=== PATIENT | female | born 1970 | race Caucasian/White ===

== ENCOUNTER 2020-05-31 13:21 | Outpatient (REF) | payer MEDICARE, MEDICAID, SELFPAY | END 2020-05-31 13:22 | disposition home or self-care (01) | LOC: HO.HMGCLDS 13:21 | PROVIDERS: Visit Provider Internal Medicine | DX: Z20.828 Contact with and (suspected) exposure to other viral communicable diseases (principal) | CPT/HCPCS: C9803; U0003 ==

== ENCOUNTER 2022-05-17 02:53 | Emergency (ER) | payer MEDICARE, MEDICAID, SELFPAY ==
--- NOTE | ~2022-05-17 | XR_ITS ---
EXAMINATION: XR HAND, RIGHT CLINICAL INFORMATION: R/O foreign body (glass) to top of R hand COMPARISON: None TECHNIQUE: PA, lateral, and oblique views of the right hand. FINDINGS: No radiodense foreign bodies are identified. No subcutaneous gas. No fracture. Alignment is anatomic. Mild osteoarthritis in the DIP joints, thumb IP joint, and thumb MCP joint. No erosions. XR/XR hand RT 2V IMPRESSION: No radiodense foreign bodies or subcutaneous gas. No acute osseous findings.
[2022-05-17 03:26] VITALS: BP 111/73; PULSE 81; RESP 16; TEMP 36.2; O2SAT 96; BMI 25.8
--- NOTE | 2022-05-17 04:02 | ED.EXTPRO ---
HPI - Extremity Problem General Chief complaint: Extremity Injury, Upper Stated complaint: cut on glass, diabetic, feels sharp pain Time Seen by Provider: 05/17/22 03:45 Source: patient Mode of arrival: ambulatory Limitations: no limitations History of Present Illness HPI Narrative: Patient comes to the emergency room complaining of a laceration to her right knuckle, 3rd digit. It happened couple of days ago. Patient states that she was in a convenience store, there was some broken glass. Patient concerned that there may be glass in it. Patient states that the wound is starting to get erythematous. No pus drainage, no fever chills. Related Data Previous Rx's Medication Instructions Recorded cephalexin 500 mg capsule 500 mg PO BID #13 caps 05/17/22 doxycycline hyclate 100 mg tablet 100 mg PO BID #13 tabs 05/17/22 Allergies Allergy/AdvReac Type Severity Reaction Status Date / Time heparin [HEPARIN] Allergy Unknown UNKNOWN Unverified 03/14/20 14:51 nadolol [NADOLOL] Allergy Unknown SOB/ASTHMA Unverified 03/14/20 14:51 ATTACK Review of Systems Review of Systems: Constitutional : No Weight loss, No Fever, No Chills, No Night Sweats, No Fatigue, No Malaise ENT/Mouth : No Hearing loss, No Ear Pain, No Nasal Congestion, No Sinus Pain, No Hoarseness, No sore throat, No Rhinorrhea, No Swallowing Difficulty Eyes: No Eye Pain, No Swelling, No Redness, No Foreign Body, No Discharge, No Vision Changes Cardiovascular : No Chest Pain, No SOB, No Dyspnea on Exertion, No Orthopnea, No Edema, No Palpitations Respiratory : No Cough, No Sputum, No Wheezing, No Smoke Exposure, No Dyspnea Gastrointestinal : No Nausea, No Vomiting, No Diarrhea, No Constipation, No abdominal Pain, No Hematochezia, No Melena Genitourinary : no irregular bleeding, No Dysuria, No Urinary Frequency, No Hematuria, No Urinary Incontinence, No Urgency, No Flank Pain, No Urinary Flow Changes, No Hesitancy Musculoskeletal : No joint pain, No Myalgias, No Joint Swelling Skin : Abrasion to the dorsum of the hand 3rd PIP, erythema Neuro : No Weakness, No Numbness, No Paresthesias, No Loss of Consciousness, No Dizziness, No Headache Psych : No Anxiety/Panic, No Depression, No SI/HI/AH/VH, No Social Issues, Heme/Lymph: No Bruising, No Bleeding,No Lymphadenopathy Endocrine : No Polyuria, No Polydipsia, No Temperature Intolerance [facility] Past Medical History Medical History (Updated 05/17/22 @ 04:06 by Nora Shankar MD) Type 2 diabetes Social History Social History Advance Directives: No Advance Directives Information Provided: Yes Physical Exam Vital Signs: Vital Signs: Last Vital Signs Temp 97.2 F 05/17/22 03:26 Pulse 81 05/17/22 03:26 Resp 16 05/17/22 03:26 BP 111/73 05/17/22 03:26 Pulse Ox 96 05/17/22 03:26 O2 Del Method 05/17/22 03:26 BMI result Body Mass Index 25.8 Const: Other: Appearance: Alert. Oriented X3. No acute distress. Eyes: Pupils equal, round and reactive to light. ENT: Pharynx normal. Neck: Normal inspection. Neck supple. No lymph nodes noted. No crepitus CVS: Normal heart rate and rhythm. Pulses normal. Normal S1 and S2 Respiratory: No respiratory distress. Breath sounds normal. No Wheezing. No rales Abdomen: Soft and nontender. No rigidity. No distention. Skin: Skin warm and dry. 0.3 cm abrasion to the 3rd PIP on the right-hand, mild erythema around the Extremities: No lower extremity edema. No Lacerations. No Rash Neuro: Oriented X 3. No motor deficit. No sensory deficit. Moving all extremities. No slurred speech. CN 2 through 12 grossly intact Psych: calm, cooperative, normal affect Course Course Course Narrative: Patient given the 1st dose of cephalexin and doxycycline, x-ray negative for foreign bodies. Cut is superficial Discharge Plan Discharge Clinical Impression: Laceration Patient Disposition: Home, Self-Care Instructions: Laceration (ED) Additional Instructions: Please follow-up with your primary care physician tomorrow. If you have any worsening or new symptoms, please return to the emergency room or call 911 Prescriptions: New doxycycline hyclate 100 mg tablet 100 mg PO BID Qty: 13 0RF cephalexin 500 mg capsule 500 mg PO BID Qty: 13 0RF
--- OUTSIDE RECORDS SUMMARY | 2022-05-17 04:03 | XMS_ITS | Continuity of Care Document ---
:1970 Author Organization [facility] Address [address] [facility], 3rd Floor, [address] [place] [id number]- Care Team Providers Name Role Phone Zee Ron MD Primary Care Physician Encounter [facility] [place] Date(s): 06/28/19 - 10/26/19 [facility] [address], [address] Floor, [address] [place] [phone]- [facility] Attending Physician: Manda EAVNS, Arabella Rao Admitting Physician: Manda EVANS, Arabella Rao Referring Physician: Zee Ron MD Allergies, Adverse Reactions, Alerts Substance Reaction Severity Status nadolol Active heparin Active Immunizations Given and Recorded Vaccine Date Status Refusal Reason influenza virus vaccine, inactivated1 06/06/14 Given influenza virus vaccine, inactivated2 03/28/12 Given Tet/diphth/pertussis, acel (oldterm)3 01/27/11 Given Influenza Virus Vaccine (oldterm)4 03/22/09 Given Tet/Diphth/Acel, Pertussis (oldterm) 08/07/08 Given Pneumococcal Vaccine (oldterm)5 07/02/07 Given tetanus-diphtheria toxoids (Td) 08/07/96 Given 1Result Comment: [06/06/2014] [id number] Note: riverbend [id number] Note: [id number] Note: given at [id number] Note: GIVEN AT [facility] ON 07/02/07. PER RECORD RECEIVED 07/28/07. Medications albuterol 0.083% inhalation solution 3 mL = 2.5 mg, Inhalation, Every 6 hours, PRN for wheezing, # 60 each, 5 Refills, Maintenance, 10/17/13 10:15:13, Solution, 3 mL Inhalation Every 6 hours,PRN:for wheezing Start Date: 10/17/13 Status: OrderedFlovent HFA 220 mcg/inh inhalation aerosol 1 puffs, Inhalation, 2 times a day, # 12 Gm, 0 Refills, Maintenance, Aerosol, 1 puffs Inhalation 2 times a day Start Date: 05/17/13 Status: Orderedhydrochlorothiazide 25 mg oral tablet = 25 mg, By Mouth, Daily, # 30 Doses, 0 Refills, Maintenance, 01/09/15 9:33:22, Tablet, 25 mg By Mouth Daily,x30 days Start Date: 01/09/15 Stop Date: 02/08/15 Status: Orderedlevothyroxine 75 mcg (0.075 mg) oral tablet 1 tablet = 0.075 mg, By Mouth, Daily, # 30 tablet, 5 Refills, Maintenance, 12/05/14 11:03:32, 1 tablet By Mouth Daily,x30 days Start Date: 12/05/14 Stop Date: 06/03/15 Status: OrderedNebulizer/Compressor See Instructions, # 1 pack/packet, Maintenance, use every 4 hours as needed for wheezing/coughing, 08/19/09 12:26:01 Start Date: 08/19/09 Status: Orderedparoxetine 20 mg oral tablet 1 tablet = 20 mg, By Mouth, Daily, # 30 tablet, 11 Refills, Maintenance, 07/06/14 12:23:46, 1 tabletBy Mouth Daily,x30 days Start Date: 07/06/14 Stop Date: 07/01/15 Status: OrderedProAir HFA 90 mcg/inh inhalation aerosol with adapter 2 puffs, Inhalation, Every 4 hours, PRN for wheezing, # 1 each, 5 Refills, Maintenance, 03/30/14 14:24:52, Aerosol, 2 puffs Inhalation Every 4 hours,PRN:for wheezing Start Date: 03/30/14 Status: Ordered Problem List Condition Effective Dates Status Health Status Informant Asthma(Confirmed) 10/29/09 Active Bipolar disorder(Confirmed) Active Cigarette smoker(Confirmed) Active Hypoglycemia(Confirmed) Active Hypothyroidism(Confirmed) 10/29/09 Active Social History Social History Type Response Smoking Status Current every day smoker entered on: 06/06/14 Sex
--- OUTSIDE RECORDS SUMMARY | 2022-05-17 04:03 | XMS_ITS | Continuity of Care Document ---
:1970 Author Organization [facility] Address [address] [facility], 3rd Floor, [address] [place] [address]- Care Team Providers Name Role Phone Zee Ron MD Primary Care Physician [place] [facility] [place]s): 08/29/19 - 09/05/19 [facility] [address], [address] Floor, [address] [place] [id number]- [facility] Attending Physician: Leonard Carrasco NP Referring Physician: Zee Ron MD Allergies, Adverse [...] toxoids (Td) 08/07/96 Given 1Result Comment: [06/06/2014] [id number] Note: rivercodynd [id number] Note: [id number] Note: given at [id number] Note: GIVEN AT [facility] ON 07/02/07. PER RECORD RECEIVED 07/28/07. Medications [...] smoker(Confirmed) Active Hypoglycemia(Confirmed) Active Hypothyroidism(Confirmed) 10/29/09 Active Vital Signs Most recent to oldest [Reference Range]: 1 Height 170 cm (08/29/19 12:37 PM) Weight 72.5 kg (08/29/19 12:37 PM) Oxygen Saturation [94-100 %] 97 % (08/29/19 12:37 PM) Pulse Rate [55-90 bpm] 74 bpm (08/29/19 12:37 PM) Body Mass Index [18.5-24.99] 25.09 *H* (08/29/19 12:37 PM) Blood Pressure [90-138/55-84 mm Hg] 90/70 mm Hg (08/29/19 12:37 PM) Mode of Delivery (Oxygen) Room air (08/29/19 12:37 PM) Blood pressure sites Arm, left (08/29/19 12:37 PM) Social History Social History Type Response Smoking Status Current every day smoker entered on: 06/06/14 Sex
--- OUTSIDE RECORDS SUMMARY | 2022-05-17 04:03 | XMS_ITS | Continuity of Care Document ---
:1970 Author Organization [facility] Address [address] [facility], 3rd Floor, [address] [place] [id number]- Care Team Providers Name Role Phone Zee Ron MD Primary Care Physician Encounter [facility] [place] Date(s): 08/31/19 - 09/10/19 [facility] [address] [place], [address], [address] [place] [id number]- [facility] Attending Physician: Admjose luis, Jordin Admitting Physician: AdmtrJordin Referring Physician: Admtr, Ar8 Allergies, Adverse Reactions, Alerts Substance Reaction Severity Status nadolol Active heparin Active Immunizations Given and Recorded Vaccine Date Status Refusal Reason influenza virus vaccine, inactivated1 06/06/14 Given influenza virus vaccine, inactivated2 03/28/12 Given Tet/diphth/pertussis, acel (oldterm)3 01/27/11 Given Influenza Virus Vaccine (oldterm)4 03/22/09 Given Tet/Diphth/Acel, Pertussis (oldterm) 08/07/08 Given Pneumococcal Vaccine (oldterm)5 07/02/07 Given tetanus-diphtheria toxoids (Td) 08/07/96 Given 1Result Comment: [06/06/2014] [id number] Note: [facility]end [id number] Note: [id number] Note: given at czih4Saoba Note: GIVEN AT [facility] ON 07/02/07. PER RECORD RECEIVED 07/28/07. [...]
--- OUTSIDE RECORDS SUMMARY | 2022-05-17 04:03 | XMS_ITS | Continuity of Care Document ---
:1970 Author Organization [facility] Address [address] [place] [id number]- Care Team Providers Name Role Phone Zee Ron MD Primary Care Physician [place] [facility] [place]11[place]19 - 11/03/[address] [address]- [facility] Attending Physician: Leonard Carrasco NP Admitting Physician: Leonard Carrasco NP Referring Physician: Leonard Carrasco NP Allergies, Adverse Reactions, Alerts Substance Reaction Severity Status nadolol Active heparin Active Immunizations Given and Recorded Vaccine Date Status Refusal Reason influenza virus vaccine, inactivated1 06/06/14 Given influenza virus vaccine, inactivated2 03/28/12 Given Tet/diphth/pertussis, acel (oldterm)3 01/27/11 Given Influenza Virus Vaccine (oldterm)4 03/22/09 Given Tet/Diphth/Acel, Pertussis (oldterm) 08/07/08 Given Pneumococcal Vaccine (oldterm)5 07/02/07 Given tetanus-diphtheria toxoids (Td) 08/07/96 Given 1Result Comment: [06/06/2014] [id number] Note: rivertony nafzhorf3Jwtoo Note: [id number] Note: given at rdjk0Twwik Note: GIVEN AT [facility] ON 07/02/07. PER RECORD RECEIVED 07/28/07. [...]
--- OUTSIDE RECORDS SUMMARY | 2022-05-17 04:03 | XMS_ITS | Continuity of Care Document ---
:1970 Author Organization [facility] Address [address] [facility], 3rd Floor, [address] [place] [phone]- Care Team Providers Name Role Phone Zee Ron MD Primary Care Physician Encounter [facility] [place] Date(s): 09/26/19 - 10/06/19 [facility] [address] [place], [address], [address] [place] [address]- [facility] Attending Physician: Admtr, Andrew8 Admitting Physician: Admtr, Andrew8 Referring Physician: Admtr, Ar8 Allergies, Adverse Reactions, [...] toxoids (Td) 08/07/96 Given 1Result Comment: [06/06/2014] [id number] Note: [facility]end [id number] Note: [id number] Note: given at podb6Ndbxo Note: GIVEN AT [facility] ON 07/02/07. PER RECORD RECEIVED 07/28/07. [...]
[2022-05-17] MEDS: Doxycycline Monohydrate 100 MG CAPSULE PO (04:12)
[2022-05-17] MEDS: cephALEXin 500 MG CAPSULE PO (04:12)
--- NOTE | 2022-05-17 04:39 | PC.NURSE ---
Pt. sitting in bed eating her snack of carrots. Medicated per AUG upon d/c.
== END 2022-05-17 04:39 | disposition home or self-care (01) ==
PROVIDERS: Emergency Provider Emergency Medicine; PCP Internal Medicine
DX: S61.212A Laceration without foreign body of right middle finger without damage to nail, initial encounter (principal); W25.XXXA Contact with sharp glass, initial encounter; Y93.9 Activity, unspecified; Y92.9 Unspecified place or not applicable; Y99.9 Unspecified external cause status
CPT/HCPCS: 73120; 99282; 99283

== ENCOUNTER 2022-11-24 17:14 | Emergency (ER) | payer MEDICARE, MEDICAID, SELFPAY ==
--- NOTE | ~2022-11-24 | XR_ITS ---
EXAMINATION: XR HAND, RIGHT CLINICAL INFORMATION: Third metacarpophalangeal pain. COMPARISON: X-ray of the right hand 05/17/2022. TECHNIQUE: PA, lateral, and oblique views of the right hand. FINDINGS: No acute fractures or malalignment. Redemonstration of small enthesophytes in the second DIP joint. Mild joint space narrowing of the first carpometacarpal space. No erosions or chondrocalcinosis. No significant soft tissue abnormality. XR/XR hand RT min 3V IMPRESSION: 1. No acute fractures or malalignment. 2. Mild degenerative osteoarthritis.
--- NOTE | 2022-11-24 18:03 | ED_ITS ---
HPI - Extremity Injury (Upper) General Chief Complaint: Extremity Injury, Upper Stated Complaint: pain in knuckles Time Seen by Provider: 11/24/22 19:49 Source: patient Mode of arrival: ambulatory Limitations: no limitations History of Present Illness HPI narrative: 51 yold female presents to the ED for right 3rd finger pain and inermittent swelling since last year april after a trauma. Patient states no redness, fever, chills, or any recent trauma. Related Data Previous Rx's Medication Instructions Recorded cephalexin 500 mg capsule 500 mg PO BID #13 caps 05/17/22 doxycycline hyclate 100 mg tablet 100 mg PO BID #13 tabs 05/17/22 naproxen 500 mg tablet 500 mg PO BID PRN pain 7 days #14 11/24/22 tabs prednisone 20 mg tablet 40 mg PO DAILY 5 days #10 tabs 11/24/22 Allergies Allergy/AdvReac Type Severity Reaction Status Date / Time heparin [HEPARIN] Allergy Unknown UNKNOWN Verified 11/24/22 18:03 nadolol [NADOLOL] Allergy Unknown SOB/ASTHMA Verified 11/24/22 18:03 ATTACK Review of Systems Review of Systems: Right 3rd finger pain pain and swelling Yes all other systems are reviewed and are negative [facility] Past Medical History Medical History (Updated 11/25/22 @ 00:01 by Background Dabriseida) Type 2 diabetes Social History Social History Advance Directives: No Advance Directives Information Provided: No Physical Exam Vital Signs: Vital Signs: Last Vital Signs Temp 98 F 11/24/22 18:04 Pulse 66 11/24/22 18:04 Resp 18 11/24/22 18:04 BP 159/90 H 11/24/22 18:04 Pulse Ox 95 11/24/22 18:04 O2 Del Method Room Air 11/24/22 18:04 BMI result Body Mass Index 25.8 Const: General: cooperative, healthy appearing, comfortable, no acute distress, well developed, alert, awake and Physically active Orientation/cons ciousness: oriented to person, oriented to place, oriented to time and patient oriented x3 HEENT: Head: Yes normal to inspection, Yes No palpable skull fracture present, Yes normocephalic, Yes atraumatic and No abrasion Eyes: General: appearance normal, both eyes and all related structures Neck: Neck: Yes normal visual inspection, Yes full ROM, Yes no lymphadenopathy, Yes no meningeal signs, Yes trachea midline, Yes supple, No anterior neck swelling and No tender Chest: Chest palpation & inspection: normal inspection of the chest and normal palpation of entire chest wall Resp: Effort & Inspection: normal respiratory effort and able to speak in complete sentences Auscultation: clear to auscultation bilaterally Cardio: Jugular venous distension: no JVD Heart sounds: S1 normal heart sound present and S2 normal heart sound present GI: Inspection: Yes normal to inspection and No abdominal wall ecchymosis Palpation (GI): Soft to palpation, not firm, nontender, no guarding and not rigid : General: No CVA tenderness and Yes no CVA tenderness Back/Spine/Pelvis: Back: no CVA tenderness, No CVA tenderness and No back tenderness Skin: General skin exam: no rashes or lesions noted and elasticity normal Neuro: General: oriented to person, oriented to place, oriented to time, patient oriented x3, gait normal, tone normal, moves all extremities, Normal light touch and pain sensation, no meningeal signs, no focal motor deficits, CN's II-XI intact bilaterally and normal sensation to monofilament Extrem: General: Yes normal to inspection and Yes full ROM Hand/finger images: 1. Slight swelling and tenderness. Negative for erythema, crepitus, ecchymosis, deformity, stiffness. Patient has complete range of motion of finger. Capillary refills intact. No signs of tenosynovitis. Motor, neuro, and vascular exam is intact. Psych: Appearance: grossly normal, well kempt and not disheveled Course Course Course Narrative: RME - 51 yo right hand dominant female presents to the ER for evaluation of right 3rd MCP pain and numbness since April 2022 when she sustained a cut to the area. No new injuries. Slightly swollen and tender on exam. Plan: repeat XR hand Medical Decision Making Medical Decision Making MDM Narrative: 51-year-old female presents ED for 3rd finger pain and swelling intermittently since April. Patient has complete range of motion of finger. Negative for erythema, ecchymosis, crepitus, stiffness, or deformity. Negative for signs of nerve injury. Negative for signs of tendon injury. X-ray shows arthritis. Not suspecting septic joint, tenosynovitis, abscess, or cellulitis. 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 Return to the ED for any redness, warmth, increased pain, swelling, fever, chills, inability to move finger, pus discharge, foul odor, or any other concerning symptoms. Prescriptions: New naproxen 500 mg tablet 500 mg PO BID PRN (Reason: pain) 7 Days Qty: 14 0RF prednisone 20 mg tablet 40 mg PO DAILY 5 Days Qty: 10 0RF No Action doxycycline hyclate 100 mg tablet 100 mg PO BID Qty: 13 0RF cephalexin 500 mg capsule 500 mg PO BID Qty: 13 0RF Stand Alone Forms: Work/School Release Interventions: ED Discharge Assessment Last Done: 11/24/22 21:02 Discharge Date/Time: 11/24/22 21:03 Print Language: Emirati
[2022-11-24 18:04] VITALS: BP 159/90; PULSE 66; RESP 18; TEMP 36.6; O2SAT 95; BMI 25.8
== END 2022-11-24 21:03 | disposition home or self-care (01) ==
PROVIDERS: Emergency Provider Student in an Organized Health Care Education/Training Program; PCP Internal Medicine
DX: M19.041 Primary osteoarthritis, right hand (principal); M79.644 Pain in right finger(s)
CPT/HCPCS: 73130; 99282; 99283; 99284

== ENCOUNTER 2023-01-26 16:31 | Emergency (ER) | payer MEDICARE, MEDICAID, SELFPAY ==
--- NOTE | ~2023-01-26 | CT_ITS ---
EXAMINATION: CT HEAD WITHOUT CONTRAST CT CERVICAL SPINE WITHOUT CONTRAST CLINICAL INFORMATION: Fall. COMPARISON: CT head and cervical spine 03/04/2016. TECHNIQUE: Contiguous axial imaging was performed from the skull base to vertex without intravenous administration of contrast. Contiguous axial imaging was performed from the upper chest through the skull base without intravenous administration of contrast. Coronal and sagittal reformats were obtained at the acquisition workstation. This CT examination was performed using dose optimization techniques as appropriate, variously including the following: *Automated exposure control *Adjustment of mA and/or kV according to patient size (this includes techniques or standardized protocols for targeted exams where dose is matched to indication/reason for exam; i.e. extremities or head) *Use of iterative reconstruction technique DLP: 742 and 292 mGy-cm FINDINGS: Head: There is no evidence of acute intracranial hemorrhage or edematous territorial infarction. A few foci of hypoattenuation in the periventricular and deep white matter are consistent with mild microangiopathy. Rivera-white matter differentiation is preserved. Proportional prominence of the ventricles and sulcal spaces. No evidence for obstructive hydrocephalus. No abnormal mass effect or midline shift. No extra-axial fluid collections. No acute soft tissue or osseous abnormalities. Air-fluid level in the left maxillary sinus. Mucus retention cysts in the maxillary sinuses. Moderate mucosal thickening of the frontal sinuses. Mastoids and middle ear cavities are clear. Cervical Spine: The atlantooccipital and atlantoaxial articulations remain well aligned. Straightening of the normal cervical lordosis. Otherwise, there is anatomic alignment of the vertebral bodies and posterior elements. No evidence of acute fracture or subluxation. Mild multilevel cervical spondylosis. There is no prevertebral soft tissue swelling. The thyroid gland and remaining cervical soft tissues are normal in appearance. The lung apices demonstrate no abnormalities. CT/CT cervical spine wo IV con IMPRESSION: 1. No acute intracranial pathology. 2. No acute cervical spinal fractures or malalignment. 3. Paranasal sinus disease. Correlate clinically for acute sinusitis.
[2023-01-26 17:11] VITALS: BP 141/72; PULSE 106; RESP 18; TEMP 36.4; O2SAT 96; BMI 25.1
--- NOTE | 2023-01-26 17:11 | ED.HEATRA ---
HPI - Head Injury General Chief complaint: Fall Stated complaint: fell on head 3 days ago/ cant swallow/confused Time Seen by Provider: 01/26/23 20:37 Source: patient Mode of arrival: ambulatory Limitations: no limitations History of Present Illness HPI Narrative: Patient history of anxiety/depression apparently fell from her bed about 4 days ago hitting her right side of the to the right stent complaining of sore throat nasal congestion since then no fever no chills called her PCP Karlee to the hospital as it could be from the injury no loss of consciousness Related Data Previous Rx's Medication Instructions Recorded cephalexin 500 mg capsule 500 mg PO BID #13 caps 05/17/22 doxycycline hyclate 100 mg tablet 100 mg PO BID #13 tabs 05/17/22 naproxen 500 mg tablet 500 mg PO BID PRN pain 7 days #14 11/24/22 tabs prednisone 20 mg tablet 40 mg PO DAILY 5 days #10 tabs 11/24/22 Allergies Allergy/AdvReac Type Severity Reaction Status Date / Time heparin [HEPARIN] Allergy Unknown UNKNOWN Verified 11/24/22 18:03 nadolol [NADOLOL] Allergy Unknown SOB/ASTHMA Verified 11/24/22 18:03 ATTACK Review of Systems Review of Systems: Yes all other systems are reviewed and are negative [facility] Past Medical History Medical History Type 2 diabetes Social History Social History Advance Directives: No Advance Directives Information Provided: No Physical Exam Vital Signs: Vital Signs: Last Vital Signs Temp 97.6 F 01/26/23 17:11 Pulse 106 H 01/26/23 17:11 Resp 18 01/26/23 17:11 BP 141/72 H 01/26/23 17:11 Pulse Ox 96 01/26/23 17:11 BMI result Body Mass Index 25.1 Appearance: Alert. Oriented X3. No acute distress. And she Eyes: PERRLA, No Nystagmus ENT: Pharynx normal. Oral Mucosa moist atraumatic normocephalic Neck: Normal inspection. Neck supple. No midline tenderness no lymphadenopathy tympanic membrane intact EAC normal no stridor CVS: Normal heart rate and rhythm. Pulses normal. Respiratory: No respiratory distress. Equal air entry bilateral, no wheezing/rales/rhonchi Abdomen: Soft and nontender. Bowel sounds are present, no mass palpable, no CVA tenderness Skin: Skin warm and dry. Normal skin color. Normal skin turgor. Extremities: No lower extremity edema. No calf tenderness Neuro: Oriented X 3. No motor deficit. No sensory deficit.No cerebellar signs , cranial nerves II-XII intact Course Course Course Narrative: RME - 52 y/o female with history of brittle DM who presents to the ER for evaluation of headache, confusion, vision changes, nausea after she fell out of her bed when sitting on the edge of the bed and hit her head on the door 3 or 4 days ago. Unclear if LOC. Not on anticoagulation. She also reports sore throat and inability to swallow. PCP instructed her to come to the ER for evaluation. Plan: CT head and c-spine, strep swab Medical Decision Making Medical Decision Making [facility] Narrative: Patient with allergies likely viral URI with history of minor nonsignificant for head CT and C-spine CT was negative will discharge patient home Lab Data [facility] Lab Attestation statement: I reviewed the patient's lab results. Labs: Lab Results 01/26/23 Range/Units 17:27 S. pyogenes GrpA YADIEL Negative (Negative) Discharge Plan Discharge Clinical Impression: Viral URI Patient Disposition: Home, Self-Care Instructions: Upper Respiratory Infection (ED) Additional Instructions: Drink plenty of liquids Saline gargles as advised Take Benadryl/Claritin daily for allergies as needed Prescriptions: No Action doxycycline hyclate 100 mg tablet 100 mg PO BID Qty: 13 0RF cephalexin 500 mg capsule 500 mg PO BID Qty: 13 0RF naproxen 500 mg tablet 500 mg PO BID PRN (Reason: pain) 7 Days Qty: 14 0RF prednisone 20 mg tablet 40 mg PO DAILY 5 Days Qty: 10 0RF
[2023-01-26 17:47] LABS: IDNOW Serial# 6674DD1D; Strep A Nucleic Acid Negative (Negative)
== END 2023-01-26 20:52 | disposition home or self-care (01) ==
PROVIDERS: Physician Assistant; Emergency Provider Internal Medicine; PCP Internal Medicine
DX: J06.9 Acute upper respiratory infection, unspecified (principal); J02.9 Acute pharyngitis, unspecified; R51.9 Headache, unspecified; Z91.81 History of falling; E11.9 Type 2 diabetes mellitus without complications
CPT/HCPCS: 70450; 72125; 87651; 99282; 99284

== ENCOUNTER 2023-04-07 06:55 | Emergency (ER) | payer MEDICARE, MEDICAID, SELFPAY ==
[2023-04-07 07:18] VITALS: BP 120/73; PULSE 71; RESP 18; TEMP 36.6; O2SAT 98; BMI 27.5
--- NOTE | 2023-04-07 07:31 | ED.WOUNDLAC ---
HPI - Wound/Laceration General Chief Complaint: Wound/Laceration Stated Complaint: Skin Issues ?Psych Issues Time Seen by Provider: 04/07/23 07:11 History of Present Illness HPI narrative: Patient is a 52-year-old female presents today with having skin lesions noted over her body that is been ongoing for months. Patient went to multiple institutions. Have seen a billing rep in the past. Been to multiple emergency department. Complaining that they are all flies coming out of the wound. Patient complaining that there are wounds are puretic. There is no systemic complaints. Patient insists that there are bugs coming out. Patient from home. Related Data Previous Rx's Medication Instructions Recorded cephalexin 500 mg capsule 500 mg PO BID #13 caps 05/17/22 doxycycline hyclate 100 mg tablet 100 mg PO BID #13 tabs 05/17/22 naproxen 500 mg tablet 500 mg PO BID PRN pain 7 days #14 11/24/22 tabs prednisone 20 mg tablet 40 mg (2 x 20 mg) PO DAILY 5 days 11/24/22 #10 tabs doxycycline hyclate 100 mg capsule 100 mg PO BID cough 7 days #14 caps 04/07/23 Allergies Allergy/AdvReac Type Severity Reaction Status Date / Time heparin [HEPARIN] Allergy Unknown UNKNOWN Verified 04/07/23 07:18 nadolol [NADOLOL] Allergy Unknown SOB/ASTHMA Verified 04/07/23 07:18 ATTACK Review of Systems Review of Systems: No fever no chills no chest pain or shortness of breath. Positive history diabetes Yes all other systems are reviewed and are negative [facility] Past Medical History Attestation statement: The following information was validated with the patient. Medical History Type 2 diabetes Social History Social History Advance Directives: No Physical Exam Vital Signs: Vital Signs: Last Vital Signs Temp 98 F 04/07/23 07:18 Pulse 71 04/07/23 07:18 Resp 18 04/07/23 07:18 BP 120/73 04/07/23 07:18 Pulse Ox 98 04/07/23 07:18 O2 Del Method Room Air 04/07/23 07:18 BMI result Body Mass Index 27.5 Appearance: Alert. Oriented X3. No acute distress. Eyes: Pupils equal, round and reactive to light. ENT: Pharynx normal. Neck: Normal inspection. Neck supple. No lymph nodes noted. No crepitus CVS: Normal heart rate and rhythm. Pulses normal. Normal S1 and S2 Respiratory: No respiratory distress. Breath sounds normal. No Wheezing. No rales Abdomen: Soft and nontender. No rigidity. No distention. good BS x4 Skin: Patient was examined with nurse Alize present.) Multiple skin lesions over the left breast. No skin lesions over her breasts are approximately 4 cm x 3 cm in size it has a erythematous surrounding with a granulomatous base. Surrounding Indurated. Multiple lesions also noted over the left leg at different stages of healing Extremities. Good range of motion. Distal pulses intact sensation intact Neuro: Oriented X 3. No motor deficit. No sensory deficit. Moving all extermities. No slurred speech. Medical Decision Making Medical Decision Making [facility] Narrative: Multiple skin lesions question local icing skin infection will start patient on doxycycline for MRSA coverage. Patient will need close follow-up on an outpatient basis. Electrolytes showed sugar to be in the 288 range. There is no evidence for diabetic ketoacidosis. Explained to patient the need for follow-up on outpatient basis. Patient states understanding. Differential Diagnosis Differential Diagnoses: The differential diagnosis associated with the presentation includes Lab Data [facility] Lab Attestation statement: I reviewed the patient's lab results. 04/07/23 07:46 04/07/23 07:46 Labs: Lab Results 04/07/23 Range/Units 07:46 WBC 5.6 (4.8-10.8) X10*3/uL RBC 4.47 (4.20-5.50) X10*6/uL Hgb 13.1 (12.0-16.0) g/dl Hct 40.0 (37.0-47.0) % MCV 89.5 (80.0-98.0) fL MCH 29.3 (27.0-33.0) pg MCHC 32.8 (31.0-35.0) g/dl RDW 13.3 (11.0-16.0) % Plt Count 150 L (160-400) X10*3/uL MPV 11.9 (9.4-12.3) fL Immature Gran % (Auto) 0.2 (0.0-0.4) % Neut % (Auto) 51.6 (45-73) % Lymph % (Auto) 36.0 (20-40) % Navarro % (Auto) 6.8 (2-11) % Eos % (Auto) 4.5 H (0-4) % Baso % (Auto) 0.9 (0-2) % Lymph # (Auto) 2.0 (1.2-4.9) X10*3/uL Navarro # (Auto) 0.4 (0.1-1.2) X10*3/uL Eos # (Auto) 0.3 (0.0-0.4) X10*3/uL Baso # (Auto) 0.1 (0.0-0.2) X10*3/uL Abs Immat Gran (auto) 0.01 (0.00-0.03) X10*3/uL Absolute Neuts (auto) 2.9 (2.0-8.3) x10*3/uL Absolute Nucleated RBC 0.000 (0.0-0.012) X10*3/uL Nucleated RBC % (auto) 0.0 (0.0-0.2) /100WBC Sodium 139 (135-145) mmol/L Potassium 4.5 (3.3-5.1) mmol/L Chloride 98 (96-108) mmol/L Carbon Dioxide 27 (22-29) mmol/L Anion Gap 19 (12-20) BUN 19 H (9-16) mg/dL Creatinine 0.74 (0.5-1.4) mg/dL Estim Creat Clear Calc 97.7 Estimated GFR > 60 Random Glucose 288 H (60-115) mg/dL Calcium 9.7 (8.4-10.2) mg/dL Prescription Management I considered prescription management with: Antibiotic Chronic Conditions Patient?s care impacted by: Diabetes Discharge Plan Discharge Clinical Impression: Cellulitis Patient Disposition: Home, Self-Care Instructions: Cellulitis (DC) Prescriptions: New doxycycline hyclate 100 mg capsule 100 mg PO BID 7 Days Qty: 14 0RF No Action doxycycline hyclate 100 mg tablet 100 mg PO BID Qty: 13 0RF cephalexin 500 mg capsule 500 mg PO BID Qty: 13 0RF naproxen 500 mg tablet 500 mg PO BID PRN (Reason: pain) 7 Days Qty: 14 0RF prednisone 20 mg tablet 40 mg PO DAILY 5 Days Qty: 10 0RF Referrals: Tucker Briseno MD [Primary Care Provider] - 04/09/23 (Please follow-up with your primary physician on an outpatient)
--- NOTE | 2023-04-07 07:38 | PC.NURSE ---
pt showed me a picture of a bug that came out of her nose, what I saw was dried nasal secretions with a few hairs in it
[2023-04-07 08:05] LABS: Anion Gap 19 (12-20); Blood Urea Nitrogen 19 mg/dL (9-16); Calcium 9.7 mg/dL (8.4-10.2); Carbon Dioxide 27 mmol/L (22-29); Chloride 98 mmol/L (96-108); Creatinine Clr Calc Pharmacy 97.7; Estimated Glomerular Filt Rate > 60; Glucose Random 288 mg/dL (60-115); Potassium 4.5 mmol/L (3.3-5.1); Sodium 139 mmol/L (135-145)
== END 2023-04-07 08:35 | disposition home or self-care (01) ==
PROVIDERS: Emergency Provider Emergency Medicine Emergency Medical Services; PCP Internal Medicine
DX: L98.9 Disorder of the skin and subcutaneous tissue, unspecified (principal); N61.0 Mastitis without abscess; L03.116 Cellulitis of left lower limb; E11.9 Type 2 diabetes mellitus without complications; Z79.899 Other long term (current) drug therapy
CPT/HCPCS: 36415; 80048; 85025; 99282; 99283

== ENCOUNTER 2024-02-02 22:31 | Emergency (ER) | payer MEDICARE, SELFPAY ==
--- NOTE | ~2024-02-02 | XR_ITS ---
EXAMINATION: XR KNEE, LEFT CLINICAL INFORMATION: Fall with swelling COMPARISON: None available. TECHNIQUE: Four views of the left knee. FINDINGS: No fracture or joint effusion. Alignment is anatomic. Joint spaces are maintained. No abnormal soft tissue calcification. XR/XR knee LT 4V IMPRESSION: No evidence of an acute osseous injury
[2024-02-02 22:40] VITALS: BP 152/122; PULSE 97; O2SAT 97
--- NOTE | 2024-02-02 22:43 | ED_ITS ---
HPI - Fall General Chief Complaint: Extremity Injury, Lower Stated Complaint: Fall 2 hrs ago, L knee pain/swelling Time Seen by Provider: 02/02/24 22:39 Source: patient and EMS Mode of arrival: EMS Limitations: no limitations History of Present Illness HPI Narrative: Patient is a 53-year-old female who presents emergency department for evaluation of traumatic left knee pain. Reports approximately 2 hours prior to arrival she was walking along the side of train tracks since she accidentally tripped over a wooden plank striking her knee directly onto the plane. Has noticed increasing pain swelling and bruising. Pain is localized diffusely throughout the anterior knee. Denies any numbness tingling or cold sensation to the foot. She holds her knee in approximately 35 degrees extension which is a point of most comfort, any movement either extending or flexing results in significant pain. She denies any prior injury to this knee. She denies taking any chronic pain medications. Admits to a history of alcohol use disorder but has been sober for many years, denies recreational drug usage. She denies associated head strike or loss of consciousness. Related Data Previous Rx's ?Medication ?Instructions ?Recorded cephalexin 500 mg capsule 500 mg PO BID #13 caps 05/17/22 doxycycline hyclate 100 mg tablet 100 mg PO BID #13 tabs 05/17/22 naproxen 500 mg tablet 500 mg PO BID PRN pain 7 days #14 11/24/22 tabs prednisone 20 mg tablet 40 mg (2 x 20 mg) PO DAILY 5 days 11/24/22 #10 tabs doxycycline hyclate 100 mg capsule 100 mg PO BID cough 7 days #14 caps 04/07/23 insulin aspart 1 sliding scale dose subcut 02/03/24 (niacinamide)(U-100) 100 unit/mL(3 USEASDIRECTD #15 mL mL) subcutaneous pen (Fiasp FlexTouch U-100 Insulin) Allergies Allergy/AdvReac Type Severity Reaction Status Date / Time heparin [HEPARIN] Allergy Unknown UNKNOWN Verified 02/02/24 22:54 nadolol [NADOLOL] Allergy Unknown SOB/ASTHMA Verified 02/02/24 22:54 ATTACK Review of Systems Review of Systems: Yes all other systems are reviewed and are negative [facility] Past Medical History Attestation statement: The following information was validated with the patient. Source: old records reviewed Medical History Type 2 diabetes Social History Social History Smoked in Last 30 Days: No Use of substances other than those prescribed or required for medical reasons: No Advance Directives: No Advance Directives Information Provided: Yes Do you have a plan to hurt others: No Plan Patient : No Physical Exam Vital Signs: Vital Signs: Last Vital Signs Temp 98.3 F 02/02/24 22:53 Pulse 83 02/02/24 22:53 Resp 16 02/02/24 22:53 BP 144/100 H 02/02/24 22:53 Pulse Ox 97 02/02/24 22:53 O2 Del Method Room Air 02/02/24 22:53 BMI result Body Mass Index 25.8 Appearance: Alert.?Oriented to person, place and time. No acute distress.?Normal affect. CVS: Heart sounds normal. Normal heart rate and rhythm.? Pulses normal.?? Respiratory: No respiratory distress.? Lung sounds clear to auscultation bilaterally?? Skin: Skin warm and dry.? Normal skin color.? Extremities: No right lower extremity edema.? No calf ttp?. 2+ DP/PT pulse bilaterally. Sensation is intact bilaterally to lower extremities. Left knee held in 35 degrees extension unable to tolerate any manipulation without severe pain, difficulty accessing for laxity, does not appear to have acute deformity, diffuse swelling anteriorly, early ecchymosis inferior to the patella Neuro: Moves all extremities spontaneously. Sensation intact bilaterally. CN II- XII intact. No focal neuro deficits. Course Reevaluation(s) Reevaluation #1: Patient reports that when she fell she lost her insulin aspart. On review of her pharmacy records she uses FIASP flextouch pen injecting 14-17 units subcutaneously 4 times daily. Patient was instructed to follow the sliding scale that has previously been provided to her high her doctor who prescribes her insulin. She verbalized understanding of this. Patient requesting a new p rescription for this which I have sent to her pharmacy. Time: 01:46 Medications Administered Discontinued Medications Generic Name Dose Route Start Last Admin Trade Name Freq PRN Reason Stop Dose Admin Clonazepam 1 mg 02/02/24 23:30 02/02/24 23:41 Clonazepam 1 Mg Tablet PO 02/02/24 23:31 1 mg ONCE ONE Administration Morphine Sulfate 4 mg 02/02/24 22:43 02/02/24 23:04 Morphine Sulfate 4 Mg/Ml Cartridge IM 02/02/24 22:44 4 mg ONCE ONE Administration Protocol Medical Decision Making Medical Decision Making [facility] Narrative: Patient is a 53-year-old female who presents emergency department for evaluation of traumatic left knee pain as per HPI. She appears significantly uncomfortable at the time my evaluation and unable to tolerate any manipulation of the knee. Plan to obtain XR for evaluation of fracture/dislocation. Will manage with morphine IM for pain. Extremity is neurovascularly intact distally at this time. No head strike or loss of consciousness, no focal neurological deficits. Differential Diagnosis Differential Diagnoses: The differential diagnosis associated with the presentation includes (See narrative above) Lab Data Labs: Lab Results 02/03/24 Range/Units 01:04 POC Glucose 143 H (60-115) mg/dL Independent Interpretation I performed an independent interpretation of an: Plain X-Ray (No acute fracture of the left knee) Radiology Impression Discussion of test interpretation with radiology: I have reviewed the radiologist's reading. Radiologist Impression: FINDINGS: No fracture or joint effusion. Alignment is anatomic. Joint spaces are maintained. No abnormal soft tissue calcification. XR/XR knee LT 4V IMPRESSION: No evidence of an acute osseous injury Independent Historian Clinical information obtained from an independent historian. History obtained from or confirmed by: EMS Prescription Management I considered prescription management with: Pain Medication Discharge Plan Discharge Clinical Impression: Knee sprain Patient Disposition: Home, Self-Care Instructions: Knee Sprain (ED), Crutch Instructions (ED), How to Use an Elastic Bandage (ED), R.I.C.E. Treatment (ED) Prescriptions: New Fiasp FlexTouch U-100 Insulin 100 unit/mL (3 mL) insulin pen 1 sliding scale dose subcut USEASDIRECTD Qty: 15 0RF Rx Instructions: Inject 14-17 units subcutaneous 4 times daily No Action doxycycline hyclate 100 mg tablet 100 mg PO BID Qty: 13 0RF cephalexin 500 mg capsule 500 mg PO BID Qty: 13 0RF doxycycline hyclate 100 mg capsule 100 mg PO BID 7 Days Qty: 14 0RF naproxen 500 mg tablet 500 mg PO BID PRN (Reason: pain) 7 Days Qty: 14 0RF prednisone 20 mg tablet 40 mg PO DAILY 5 Days Qty: 10 0RF Referrals: Physician,Unknown J [Primary Care Provider] - Print Language: Nepali
[2024-02-02 22:53] VITALS: BP 144/100; PULSE 83; RESP 16; TEMP 36.8; O2SAT 97; BMI 25.8
[2024-02-02] MEDS: Morphine Sulfate 4 MG/ML CARTRIDGE IM (23:04)
[2024-02-02] MEDS: clonazePAM 1 MG TABLET PO (23:41)
[2024-02-03 01:08] LABS: Glucose, Whole Blood 143 mg/dL (60-115)
[2024-02-03 06:01] VITALS: BP 126/78; PULSE 86; RESP 16; TEMP 36.6; O2SAT 99
== END 2024-02-03 02:00 | disposition home or self-care (01) ==
PROVIDERS: Emergency Provider Emergency Medicine
DX: S83.92XA Sprain of unspecified site of left knee, initial encounter (principal); W01.0XXA Fall on same level from slipping, tripping and stumbling without subsequent striking against object, initial encounter; E11.9 Type 2 diabetes mellitus without complications; Z79.4 Long term (current) use of insulin; Y93.01 Activity, walking, marching and hiking; Y92.85 Railroad track as the place of occurrence of the external cause; Y99.9 Unspecified external cause status
CPT/HCPCS: 73564; 82947; 99284; J2270

== ENCOUNTER 2024-02-03 07:38 | Emergency (ER) | payer MEDICARE, SELFPAY ==
[2024-02-03 07:58] VITALS: BP 170/96; PULSE 86; RESP 18; TEMP 36.7; O2SAT 97; BMI 25.1
[2024-02-03 09:08] LABS: Glucose, Whole Blood 198 mg/dL (60-115)
--- NOTE | 2024-02-03 09:23 | ED_ITS ---
HPI - General Adult General Chief complaint: General Medical Stated complaint: needs BS checked Time Seen by Provider: 02/03/24 09:07 Source: patient Mode of arrival: ambulatory Limitations: no limitations History of Present Illness ED Provider: Myesha Irvin PA-C HPI narrative: 53 y/o female with a history of diabetes 2 on insulin, anxiety on clonazepam who presents to the ER for evaluation of possible hyperglycemia. She states her sugars have been ?all off.? She is compliant with her insulin. She was here last night after a fall with knee pain. She states [place] She has been unable to check her blood sugar. She feels like her blood sugar is high. She denies any polyuria or polydipsia. She is on crutches due to her knee pain. She thinks she might need knee surgery. MD complaint: Possible hyperglycemia, ongoing knee pain Associated symptoms: denies other symptoms Treatments prior to arrival: none Related Data Previous Rx's ?Medication ?Instructions ?Recorded cephalexin 500 mg capsule 500 mg PO BID #13 caps 05/17/22 doxycycline hyclate 100 mg tablet 100 mg PO BID #13 tabs 05/17/22 naproxen 500 mg tablet 500 mg PO BID PRN pain 7 days #14 11/24/22 tabs prednisone 20 mg tablet 40 mg (2 x 20 mg) PO DAILY 5 days 11/24/22 #10 tabs doxycycline hyclate 100 mg capsule 100 mg PO BID cough 7 days #14 caps 04/07/23 blood sugar diagnostic (FreeStyle #100 ea 02/03/24 Test strips) blood-glucose meter (FreeStyle #1 ea 02/03/24 System Kit) insulin aspart 1 sliding scale dose subcut 02/03/24 (niacinamide)(U-100) 100 unit/mL(3 USEASDIRECTD #15 mL mL) subcutaneous pen (Fiasp FlexTouch U-100 Insulin) lancets #100 ea 02/03/24 Allergies Allergy/AdvReac Type Severity Reaction Status Date / Time heparin [HEPARIN] Allergy Unknown UNKNOWN Verified 02/03/24 08:00 nadolol [NADOLOL] Allergy Unknown SOB/ASTHMA Verified 02/03/24 08:00 ATTACK Review of Systems Review of Systems: Yes all other systems are reviewed and are negative [facility] Past Medical History Medical History Type 2 diabetes Social History Social History Advance Directives: No Advance Directives Information Provided: Yes Physical Exam ED Vital Signs: Vital Signs - 24 hr 02/03/24 07:58 Temperature 98.1 F Pulse Rate 86 Respiratory Rate 18 Blood Pressure 170/96 H Pulse Oximetry 97 Oxygen Delivery Method Room Air BMI result Body Mass Index 25.1 Appearance: Alert. Oriented X3. Disheveled Head: normocephalic, atraumatic. Eyes: Pupils equal, round and reactive to light. ENT: Pharynx normal. No tonsillar swelling or exudate. Neck: Normal inspection. Neck supple. CVS: Normal heart rate and rhythm. Pulses normal. Respiratory: No respiratory distress. Breath sounds normal. Abdomen: Soft and nontender. +BS x4 Skin: Skin warm and dry. Normal skin color. Normal skin turgor. No rashes. Extremities: No lower extremity edema. No joint swelling. Multiple small areas of scarring in different stages of healing on her lower extremities. Left knee is wrapped in an Adam wrap Neuro/psych: Oriented X 3. No motor deficit. No sensory deficit. CN II-XII intact. Normal speech and cognition. Medical Decision Making Medical Decision Making [facility] Narrative: 53-year-old diabetic female on insulin with recent diagnosis of a knee sprain after a fall yesterday presents to the ER for evaluation of possible hyperglycemia. She lost her testing supplies. No evidence of DKA. She has been compliant with her insulin. She is hemodynamically stable and breathing comfortably on evaluation. Glucose today in the emergency department is 198. No need for further evaluation. She has her insulin prescription but needs new prescriptions for her testing kits and supplies. This has been sent to her pharmacy. She was encouraged follow-up with her primary care for further evaluation and treatment of her diabetes. She was also encouraged to follow-up with orthopedics for further evaluation and treatment of her knee pain if no improvement with conservative measures. We discussed rest, ice, elevation and treatment with NSAIDs and Tylenol for pain. She has crutches. At this time she is stable for discharge home with outpatient follow-up. Differential Diagnosis Differential Diagnoses: The differential diagnosis associated with the presentation includes Diabetic hyperglycemia, hyperglycemia due to infection or stress, medication noncompliance Lab Data [facility] Lab Attestation statement: I reviewed the patient's lab results. Mild hyperglycemia Labs: Lab Results 02/03/24 Range/Units 09:05 POC Glucose 198 H (60-115) mg/dL External Record Review External record reviewed: Outpatient record, Prior outpatient labs and Prior outpatient radiology Tests considered The following testing was considered but not selected: Considered basic lab workup however low clinical suspicion for any metabolic derangement or DKA Prescription Management I considered prescription management with: Pain Medication and Other (Insulin) Chronic Conditions Patient?s care impacted by: Diabetes Critical Care Time Critical Care Time Critical Care Time: No Discharge Plan Discharge Clinical Impression: Diabetes Patient Disposition: Home, Self-Care Instructions: Diabetes and Nutrition (ED), How to Check your Blood Sugar (ED) Additional Instructions: continue your insulin as directed by your doctor monitor your glucose before meals and at bedtime testing kit and supplies have been sent to your pharmacy follow up with your PCP for further management of your diabetes continue rest, ice, elevation and tylenol/motrin for your knee pain recommend following up with Orthopedics for further evaluation and treatment If you develop new or worsening symptoms call 911 or come back to the ER for further evaluation. Prescriptions: New (DME) blood-glucose meter [FreeStyle System Kit] Kit See Rx Instructions .Route Qty: 1 0RF Rx Instructions: As directed (DME) FreeStyle Test Strip See Rx Instructions .Route Qty: 100 0RF Rx Instructions: As directed (DME) lancets Misc See Rx Instructions .Route Qty: 100 0RF Rx Instructions: As directed No Action doxycycline hyclate 100 mg tablet 100 mg PO BID Qty: 13 0RF cephalexin 500 mg capsule 500 mg PO BID Qty: 13 0RF doxycycline hyclate 100 mg capsule 100 mg PO BID 7 Days Qty: 14 0RF Fiasp FlexTouch U-100 Insulin 100 unit/mL (3 mL) insulin pen 1 sliding scale dose subcut USEASDIRECTD Qty: 15 0RF Rx Instructions: Inject 14-17 units subcutaneous 4 times daily naproxen 500 mg tablet 500 mg PO BID PRN (Reason: pain) 7 Days Qty: 14 0RF prednisone 20 mg tablet 40 mg PO DAILY 5 Days Qty: 10 0RF Referrals: [facility] [place] [facility] [Provider Group] (knee sprain) Tucker Briseno MD [Primary Care Provider] - Print Language: Ghanaian
[2024-02-03 09:59] VITALS: BP 170/96; PULSE 86; RESP 18; TEMP 36.7; O2SAT 97
== END 2024-02-03 10:00 | disposition home or self-care (01) ==
PROVIDERS: Emergency Provider Student in an Organized Health Care Education/Training Program; PCP Internal Medicine
DX: E11.9 Type 2 diabetes mellitus without complications (principal)
CPT/HCPCS: 73564; 82947; 96372; 99282; 99284; J2270

== ENCOUNTER 2024-02-11 08:40 | Outpatient (REF) | payer MEDICARE, SELFPAY | END 2024-02-11 08:41 | disposition home or self-care (01) | LOC: HO.HOSX 08:40 | DX: M25.562 Pain in left knee (principal); S80.02XA Contusion of left knee, initial encounter | CPT/HCPCS: 99202 ==

== ENCOUNTER 2024-02-11 13:51 | Outpatient (AMB) | payer MEDICARE, SELFPAY ==
--- NOTE | 2024-02-11 13:54 | MHC.OFFVIS ---
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 Patient reports she was walking along side train tracks when she tripped over a wood plank landing directly on her left knee resulting in immediate pain afterward. Her knee ending up swelling with excruciating pain which made her go to [facility] ED. She says she has numbness and tingling and last night it felt as if water was dripping down her leg, when she looked there was nothing. Pain is radiating down her leg and mid way up her thigh. Ice, Tylenol, Motrin, elevation, and morphine provided by ED gave her no relief. Pt came in with chintan bandage around left knee and with crutches HX of DM. 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 At that time, the patient reports that she was walking on some train tracks, when she tripped, fell, and hit her knee against a wooden plank next to the train tracks. From that time, the patient reports that she has been experiencing intense pain throughout the left knee, worst on the anterior aspect of the knee. The patient reports that she has had a lot of difficulty with ambulation and requires the use of a crutch since date of injury. Patient did have x-rays done in the emergency department, which she states revealed no fracture or acute bony abnormality. The patient reports that she experiences significant discomfort with flexion and extension of the left knee, as well as with palpation of the left knee. Patient denies any locking or catching of the left knee. Patient reports normal sensation to the distal right lower extremity. The patient inquires if she he will need an MRI of her left knee. No other acute complaints or concerns at this time. [facility] Medical History Type 2 diabetes Social History Alcohol intake: former Year quit: 2018 Patient Tobacco Use Status: Former Tobacco user Advance Directives: No Advance Directives Information Provided: No Do you have a plan to hurt others: No Plan Current occupational status: disabled Review of Systems Const All systems reviewed & are unremarkable except as noted in HPI and below Physical Exam Extrem Other: On inspection, there is [id number] edema noted on the anterior knee, particularly in the medial joint line and suprapatellar regions No erythema, ecchymosis, evidence of infection noted No lacerations, abrasions, open areas noted Patient reports tenderness to palpation diffusely throughout the knee Tenderness is worst on the medial and lateral anterior joint lines, as well as over the left tibial tubercle There is no palpable deformity in the quadriceps tendon or patellar tendon Patient is able to flex the left knee to approximately 120 degrees without much difficulty Patient is only able to actively extend to approximately 30-40 degrees before she feels it is too painful Passive extension of the left knee is full, and the patient is able to hold the left knee and approximately 10 degrees of extension from this full passive extension. Negative Saurav's Negative anterior drawer Negative varus and valgus laxity testing Results Reviewed Results Reviewed: X-rays obtained in the office today and independently reviewed by me, Kris Cisneros PA-C, demonstrate effusion of the left knee joint. No fracture or acute bony abnormality noted. Assessment & Plan Assessment & Plan (1) Contusion of left knee: Code(s): S80.02XA - Contusion of left knee, initial encounter Category: Medical Plan 1. Left knee contusion Date of injury 02/02/2024 The patient is discussed with Dr. Prescott, who was not available to see the patient in clinic at this time, and a collaborative treatment plan was formed: Patient is informed that, due to lack of specific findings on physical exam and mechanism of injury, an MRI is not acutely indicated at this time Patient is informed that she likely has a bony contusion of the left knee, or a small nondisplaced fracture that we are not able to observe on x-ray, which has led to her significant effusion and her discomfort Patient is informed that there is no acute intervention indicated for these issues. Patient is informed that she can continue to weightbear as tolerated, and that she should continue to work on active range of motion of her left knee Patient is informed that she can use the crutch if she feels it is necessary, but that she should continue with ambulation and weight-bearing Patient is offered physical therapy to work on gentle range of motion and strengthening of the left knee, but declines at this time Patient is informed that her symptoms should start to improve over the coming weeks, but that if she notices no improvement over the next approximately 4-6 weeks, she should call to make a follow-up appointment for discussion of further imaging or treatment options. Patient is amenable to this plan Patient will follow-up p.r.n. with any acute concerns Orders: Orders XR knee LT 3V 02/11/24 M25.562 - Pain in left knee Medications: Discontinued cephalexin Discontinued Reason: Patient no longer taking 500 mg PO BID 13 caps 0RF doxycycline hyclate Discontinued Reason: Patient no longer taking 100 mg PO BID 13 tabs 0RF prednisone Discontinued Reason: Patient no longer taking 40 mg (2 x 20 mg) PO DAILY 5 days 10 tabs 0RF naproxen Discontinued Reason: Patient no longer taking 500 mg PO BID 7 days PRN 14 tabs 0RF pain doxycycline hyclate Discontinued Reason: Patient no longer taking 100 mg PO BID 7 days 14 caps 0RF cough Coding Level of Care Code New Pt Level 3 (23295) Diagnoses Contusion of left knee S80.02XA
== END 2024-02-11 14:34 | disposition home or self-care (01) ==
PROVIDERS: PCP Internal Medicine
DX: S80.02XA Contusion of left knee, initial encounter (principal)
CPT/HCPCS: 99204

== ENCOUNTER 2024-02-16 15:50 | Emergency (ER) | payer MEDICARE, MEDICAID, SELFPAY ==
--- NOTE | ~2024-02-16 | XR_ITS ---
EXAMINATION: XR KNEE, LEFT CLINICAL INFORMATION: Pain COMPARISON: 02/02/2024 TECHNIQUE: Four views of the left knee. FINDINGS: Mild tricompartmental osteoarthritis characterized by small marginal osteophytes primarily. No fracture or malalignment. Small joint effusion. Bones are osteopenic. Mild soft tissue swelling. XR/XR knee LT 4V IMPRESSION: Mild tricompartmental osteoarthritis. Small joint effusion. No acute osseous findings. Electronically signed by: Del Franco MD 02/16/2024 05:02 PM EDT
[2024-02-16 16:22] VITALS: BP 150/90; BP 173/97; PULSE 81; PULSE 85; RESP 18; TEMP 36.5; O2SAT 96; BMI 25.1
--- NOTE | 2024-02-16 16:33 | ED.GENADULT ---
HPI - General Adult General Chief complaint: Extremity Injury, Lower Stated complaint: L knee pain Time Seen by Provider: 02/16/24 19:25 Source: patient and EMS Mode of arrival: EMS Limitations: no limitations History of Present Illness ED Provider: Yarelis Aleman PA-C HPI narrative: Patient is a 53 year old assigned female at with a history of diabetes and anxiety presenting to the emergency department today with continued left knee pain, difficulty ambulating, and insecure housing. Patient states that she fell onto her left knee on 02/02/2024 and has been unable to ambulate on that knee ever since. Patient states that she was seen the following day for diabetic issues, prescribed test strips, but was unable to pick them up because of insurance issues regarding a prior authorization. Patient states that as of this afternoon, her and her elderly mother have no where to stay because they were evicted. Patient states that she needs help with her knee pain, diabetes, and placement somewhere that isn't a homeless nursing home for herself and her mother. Patient denies any dizziness, lightheadedness, abdominal pain, nausea, vomiting, fever, chills, blurry vision, double vision, loss of vision, chest pain, difficulty breathing, shortness of breath, back pain, night sweats, pain with urination, increased urinary frequency, increased urinary urgency, blood in her urine or stool, syncope or a near syncopal episode, bowel incontinence, bladder incontinence, or any other complaints at this time. Associated symptoms: denies other symptoms Related Data Home Medications ?Medication ?Instructions ?Recorded ?Confirmed clobetasol 0.05 % topical cream 1 appl topical BID 02/11/24 02/17/24 clonidine HCl 0.3 mg tablet 0.3 mg PO DAILY 02/11/24 02/17/24 divalproex 500 mg tablet,extended 1,000 mg PO BEDTIME 02/11/24 02/17/24 release 24 hr estradiol 0.25 mg/0.25 gram (0.1 1 packet transdermal DAILY 02/11/24 02/17/24 %) transdermal gel packet gabapentin 400 mg capsule 400 mg PO TID 02/11/24 02/17/24 lamotrigine 150 mg tablet 150 mg PO DAILY 02/11/24 02/17/24 clonazepam 1 mg tablet 0.5 mg PO QID 02/17/24 02/17/24 duloxetine 20 mg capsule,delayed 20 mg PO BEDTIME 02/17/24 02/17/24 release (Cymbalta) duloxetine 30 mg capsule,delayed 30 mg PO BID 02/17/24 02/17/24 release insulin aspart 5 - 17 sliding scale dose subcut 02/17/24 02/17/24 (niacinamide)(U-100) 100 unit/mL(3 QID mL) subcutaneous pen (Fiasp FlexTouch U-100 Insulin) insulin glargine 100 unit/mL (3 40 unit subcut BID 02/17/24 02/17/24 mL) subcutaneous pen (Basaglar KwikPen U-100 Insulin) levothyroxine 75 mcg tablet 75 mcg PO MOTUWETHFR 02/17/24 02/17/24 levothyroxine 75 mcg tablet 150 mcg PO PURCELL 02/17/24 02/17/24 Previous Rx's ?Medication ?Instructions ?Recorded blood sugar diagnostic (FreeStyle #100 ea 02/03/24 Test strips) blood-glucose meter (FreeStyle #1 ea 02/03/24 System Kit) lancets #100 ea 02/03/24 blood sugar diagnostic (FreeStyle #50 ea 02/10/24 Test strips) Allergies Allergy/AdvReac Type Severity Reaction Status Date / Time heparin [HEPARIN] Allergy Unknown UNKNOWN Verified 02/16/24 16:30 nadolol [NADOLOL] Allergy Unknown SOB/ASTHMA Verified 02/16/24 16:30 ATTACK Review of Systems Constitutional: Constitutional: Reports no additional constitutional complaints, Denies chills, Denies fever(s) and Denies night sweats Eyes: Eyes: Reports no additional eye complaints, Denies blurry vision, Denies change in vision, Denies diplopia, Denies eye discharge, Denies loss of vision and Denies eye pain ENT: Denies dizziness Cardiovascular: Cardiovascular: Reports no additional cardiovascular complaints, Denies chest pain, Denies lightheadedness, Denies Loss of Consciousness and Denies dyspnea Respiratory: Respiratory: Reports no additional respiratory complaints and Denies dyspnea Gastrointestinal: Gastrointestinal: Reports no additional gastrointestinal complaints, Denies abdominal pain, Denies melena, Denies hematochezia, Denies change in bowel habits and Denies change in stool character Genitourinary: Genitourinary: Denies hematuria, Denies urinary frequency, Denies dysuria, Denies urinary incontinence, Denies urinary hesitancy and Denies urinary urgency Musculoskeletal: Musculoskeletal: Reports no additional musculoskeletal complaints, Denies numbness and Denies tingling Comments: left knee pain Neurologic: Denies dizziness, Denies loss of vision, Denies numbness and Denies tingling Psychiatric: Psychiatric: Reports no additional psychiatric complaints Endocrine: Endocrine: Reports no additional endocrine complaints Hematologic/Lymphatic: Hematologic/Lymphatic: Reports no additional hematologic/lymphatic complaints Allergic/Immunologic: Allergic/Immunologic: Reports no additional allergic/immunologic complaints PMFSH Past Medical History Attestation statement: The following information was validated with the patient. Source: old records reviewed and nursing notes reviewed Medical History Type 2 diabetes Social History Social History Alcohol intake: former Year quit: 2018 Patient Tobacco Use Status: Former Tobacco user Advance Directives: No Advance Directives Information Provided: No Do you have a plan to hurt others: No Plan Current occupational status: disabled Physical Exam ED Vital Signs: Vital Signs - 24 hr 02/16/24 16:22 02/16/24 18:13 02/16/24 22:18 Temperature 97.7 F 98.2 F 97.8 F Pulse Rate 81 81 73 Respiratory Rate 18 20 16 Blood Pressure 173/97 H 144/93 H 112/64 Pulse Oximetry 96 94 93 Oxygen Delivery Method Room Air Room Air Room Air 02/17/24 01:34 02/17/24 06:59 02/17/24 08:00 Temperature 97.0 F 97.8 F 98.6 F Pulse Rate 76 70 68 Respiratory Rate 21 H 20 14 Blood Pressure 133/76 135/87 154/89 H Pulse Oximetry 92 93 94 Oxygen Delivery Method Room Air Room Air Room Air 02/17/24 10:00 02/17/24 12:00 Temperature 98.3 F 98.6 F Pulse Rate 75 76 Respiratory Rate 14 14 Blood Pressure 152/93 H 150/85 H Pulse Oximetry 95 Oxygen Delivery Method Room Air BMI result Body Mass Index 25.1 Const General: cooperative, no acute distress, alert and awake Nutritional Appearance: well nourished Orientation/consciousness: patient oriented x3 Limitations: no limitations HENMT Head: Yes normal to inspection and Yes atraumatic Ears: hearing grossly normal bilaterally and external ears normal General nose exam: Normal external nose present, no nasal discharge noted and no epistaxis Face and sinus: Yes normal facial exam, No abrasion and No laceration Mouth: Normal oral and palatal mucosa present, no drooling and no muffled voice Eyes General: appearance normal, both eyes and all related structures Periorbital: periorbital findings normal Eyelids: Yes eyelids normal Conjunctivae: conjunctivae normal Pupils: Equal, round and reactive pupils present EOM: EOMs intact bilaterally Neck Neck: Yes normal visual inspection, Yes full ROM and Yes no lymphadenopathy Chest Chest palpation & inspection: normal inspection of the chest Resp Effort & Inspection: normal respiratory effort and able to speak in complete sentences GI Inspection: Yes normal to inspection Neuro General: patient oriented x3 and moves all extremities Cranial nerves: Yes Equal, round and reactive pupils present Cognition (Neuro): normal cognition Extrem Other: pain with ROM of the left knee General: Yes normal to inspection and Yes capillary refill normal Psych Appearance: grossly normal Mental Status: mental status grossly normal Affect: normal affect Attitude: cooperative Thought process: Normal thought process present Thought content: Normal thought content present Insight: Good insight present (Psych) Course Course Course Narrative: RME, this is a rapid medical exam performed by Deepak Brian please refer to primary provider for complete H&P- patient complaining of left knee pain since a fall 2 weeks ago. She is also complaining elevated glucose. Plan for labs, A1c, hydroxybutyrate Reevaluation(s) Reevaluation #1: Physician observation continued. Uneventful night. Vital signs stable. No complaints from nursing overnight. Med reconciliation not yet done will do once completed. Pending disposition. Will continue to monitor. Time: 08:17 Reevaluation #2: Patient cleared by CM, PT recommends outpatient PT but patient homeless. CM had a long convo with patient and provided housing and nursing home options for patient. She will be d/c w/ resources. Patient generally feeling better. No psych component Plan -dc i agree with plan. Time: 15:51 Medications Administered Generic Name Dose Route Start Last Admin Trade Name Freq PRN Reason Stop Dose Admin Acetaminophen 650 mg 02/17/24 13:32 02/17/24 13:37 Acetaminophen 325 Mg Tablet PO 650 mg TID PRN Administration Pain, Mild (Pain Scale 1-3) Clonazepam 0.5 mg 02/17/24 13:00 02/17/24 11:58 Clonazepam 0.5 Mg Tablet PO 0.5 mg QID [facility] Administration Clonidine HCl 0.3 mg 02/18/24 09:00 02/17/24 13:38 Clonidine Hcl 0.1 Mg Tablet PO 0.3 mg DAILY [facility] Administration Protocol Duloxetine HCl 30 mg 02/17/24 11:45 02/17/24 11:58 Duloxetine Hcl 30 Mg Capsule.Dr PO 30 mg BID ARASH Administration Gabapentin 400 mg 02/17/24 15:00 02/17/24 15:28 Gabapentin 400 Mg Capsule PO 400 mg TID [facility] Administration Insulin Human Lispro 0 unit 02/17/24 11:30 02/17/24 11:58 Insulin Lispro 100 Unit/Ml 3 Ml Vial SUBCUT 6 unit QIDACHS [facility] Administration Protocol Levothyroxine Sodium 75 mcg 02/17/24 14:00 02/17/24 13:37 Levothyroxine Sodium 75 Mcg Tablet PO 75 mcg [id number] [facility] Administration Discontinued Medications Generic Name Dose Route Start Last Admin Trade Name Mohitq PRN Reason Stop Dose Admin Acetaminophen 975 mg 02/16/24 19:33 02/16/24 19:43 Acetaminophen 325 Mg Tablet PO 02/16/24 19:34 975 mg ONCE ONE Administration Insulin Human Lispro 6 unit 02/17/24 05:22 02/17/24 05:29 Insulin Lispro 100 Unit/Ml 3 Ml Vial SUBCUT 02/17/24 05:23 6 unit ONCE ONE Administration Lorazepam 0.5 mg 02/16/24 19:33 02/16/24 19:44 Lorazepam 0.5 Mg Tablet PO 02/16/24 19:34 0.5 mg ONCE ONE Administration Oxycodone HCl 5 mg 02/16/24 19:33 02/16/24 19:44 Oxycodone Hcl Immed Release 5 Mg Tablet PO 02/16/24 19:34 5 mg ONCE ONE Administration Oxycodone HCl 5 mg 02/17/24 04:43 02/17/24 04:56 Oxycodone Hcl Immed Release 5 Mg Tablet PO 02/17/24 04:44 5 mg ONCE ONE Administration Medical Decision Making Medical Decision Making MDM Narrative: Patient is a 53 year old assigned female at with a history of diabetes and anxiety presenting to the emergency department today with left knee pain, diabetes, and insecure housing. Patient's physical exam was as noted. Patient is unable to ambulate very well without assistance secondary to her left knee pain. Patient's blood work showed an elevated hgb A1C but was otherwise unremarkable. Patient's left knee x-ray showed mild OA with a trace joint effusion. I explained my physical exam findings as well as all test results to the patient. I answered all questions asked by the patient. Patient will remain in the department to be evaluated by physical therapy and case management for help with possible placement. Patient placed into physician observation pending safe discharge. Differential Diagnosis Differential Diagnoses: The differential diagnosis associated with the presentation includes Left knee pain Uncontrolled diabetes Left knee sprain Internal knee injury Admission/Observation Consideration of admission/observation: Escalation of care including admission/observation considered Patient would have been admitted to the hospital had her work up had any findings where hospital admission was appropriate and her clinical presentation warranted hospital admission. Lab Data [facility] Lab Attestation statement: I reviewed the patient's lab results. My interpretation of these results are in the [facility] Rationale portion of this note. 02/16/24 17:14 02/16/24 17:14 Labs: Lab Results 02/16/24 02/17/24 02/17/24 Range/Units 17:14 05:04 08:01 WBC 8.8 (4.8-10.8) X10*3/uL RBC 4.58 (4.20-5.50) X10*6/uL Hgb 13.6 (12.0-16.0) g/dl Hct 41.2 (37.0-47.0) % MCV 90.0 (80.0-98.0) fL MCH 29.7 (27.0-33.0) pg MCHC 33.0 (31.0-35.0) g/dl RDW 14.0 (11.0-16.0) % Plt Count 171 (160-400) X10*3/uL MPV 11.0 (9.4-12.3) fL Immature Gran % (Auto) 0.5 H (0.0-0.4) % Neut % (Auto) 75.6 H (45-73) % Lymph % (Auto) 17.0 L (20-40) % Conway % (Auto) 4.7 (2-11) % Eos % (Auto) 1.4 (0-4) % Baso % (Auto) 0.8 (0-2) % Lymph # (Auto) 1.5 (1.2-4.9) X10*3/uL Conway # (Auto) 0.4 (0.1-1.2) X10*3/uL Eos # (Auto) 0.1 (0.0-0.4) X10*3/uL Baso # (Auto) 0.1 (0.0-0.2) X10*3/uL Abs Immat Gran (auto) 0.04 H (0.00-0.03) X10*3/uL Absolute Neuts (auto) 6.7 (2.0-8.3) x10*3/uL Absolute Nucleated RBC 0.000 (0.0-0.012) X10*3/uL Nucleated RBC % (auto) 0.0 (0.0-0.2) /100WBC Sodium 141 (135-145) mmol/L Potassium 4.3 (3.3-5.1) mmol/L Chloride 101 (96-108) mmol/L Carbon Dioxide 32 H (22-29) mmol/L Anion Gap 12 (12-20) BUN 19 H (9-16) mg/dL Creatinine 0.75 (0.5-1.4) mg/dL Estim Creat Clear Calc 85.3 Estimated GFR > 60 POC Glucose 301 H 173 H (60-115) mg/dL Random Glucose 225 H (60-115) mg/dL Estimat Average Glucose 206 mg/dL Hemoglobin A1c % 8.8 H (<6.0) % Calcium 9.5 (8.4-10.2) mg/dL Beta-Hydroxybutyrate 0.07 (0.02-0.27) mmol/L 02/17/24 Range/Units 11:34 WBC (4.8-10.8) X10*3/uL RBC (4.20-5.50) X10*6/uL Hgb (12.0-16.0) g/dl Hct (37.0-47.0) % MCV (80.0-98.0) fL MCH (27.0-33.0) pg MCHC (31.0-35.0) g/dl RDW (11.0-16.0) % Plt Count (160-400) X10*3/uL MPV (9.4-12.3) fL Immature Gran % (Auto) (0.0-0.4) % Neut % (Auto) (45-73) % Lymph % (Auto) (20-40) % Conway % (Auto) (2-11) % Eos % (Auto) (0-4) % Baso % (Auto) (0-2) % Lymph # (Auto) (1.2-4.9) X10*3/uL Conway # (Auto) (0.1-1.2) X10*3/uL Eos # (Auto) (0.0-0.4) X10*3/uL Baso # (Auto) (0.0-0.2) X10*3/uL Abs Immat Gran (auto) (0.00-0.03) X10*3/uL Absolute Neuts (auto) (2.0-8.3) x10*3/uL Absolute Nucleated RBC (0.0-0.012) X10*3/uL Nucleated RBC % (auto) (0.0-0.2) /100WBC Sodium (135-145) mmol/L Potassium (3.3-5.1) mmol/L Chloride (96-108) mmol/L Carbon Dioxide (22-29) mmol/L Anion Gap (12-20) BUN (9-16) mg/dL Creatinine (0.5-1.4) mg/dL Estim Creat Clear Calc Estimated GFR POC Glucose 298 H (60-115) mg/dL Random Glucose (60-115) mg/dL Estimat Average Glucose mg/dL Hemoglobin A1c % (<6.0) % Calcium (8.4-10.2) mg/dL Beta-Hydroxybutyrate (0.02-0.27) mmol/L Independent Interpretation I performed an independent interpretation of an: Plain X-Ray Interpretation: My interpretation is in agreement with the radiologist's impression of this imaging study. EXAMINATION: XR KNEE, LEFT CLINICAL INFORMATION: Pain COMPARISON: 02/02/2024 TECHNIQUE: Four views of the left knee. FINDINGS: Mild tricompartmental osteoarthritis characterized by small marginal osteophytes primarily. No fracture or malalignment. Small joint effusion. Bones are osteopenic. Mild soft tissue swelling. XR/XR knee LT 4V IMPRESSION: Mild tricompartmental osteoarthritis. Small joint effusion. No acute osseous findings. Electronically signed by: Del Franco MD 02/16/2024 05:02 PM EDT RP Dictated By: Del Franco MD Signed By: Electronically signed by Del Franco MD 02/16/24 170 Radiology Impression Discussion of test interpretation with radiology: I have reviewed the radiologist's reading. Independent Historian Clinical information obtained from an independent historian. History obtained from or confirmed by: EMS (EMS provided additional history and confirmed the history provided by the patient.) Chronic Conditions Patient?s care impacted by: Diabetes Discharge Plan Discharge Clinical Impression: Knee sprain, Difficulty in walking, Diabetes Patient Disposition: Home, Self-Care Instructions: Type 2 Diabetes in the Older Adult (ED), Knee Sprain (ED) Additional Instructions: Take your medications as prescribed. If you were prescribed antibiotics today, it is important that you take your medication to their entirety, do not skip any doses, do not finish them early. Follow-up with your primary care provider this week. Return to the emergency department with new or worsening symptoms. Such as fevers, chills, chest pain, shortness of breath, nausea, vomiting, dizziness, headache, vision changes, lethargy In case of emergency call 911 Prescriptions: No Action (DME) blood-glucose meter [FreeStyle System Kit] Kit See Rx Instructions .Route Qty: 1 0RF Rx Instructions: As directed (DME) FreeStyle Test Strip See Rx Instructions .Route Qty: 100 0RF Rx Instructions: As directed (DME) lancets Misc See Rx Instructions .Route Qty: 100 0RF Rx Instructions: As directed (DME) FreeStyle Test Strip See Rx Instructions .Route Qty: 50 0RF Rx Instructions: As directed clonazepam 1 mg tablet 0.5 mg PO QID duloxetine [Cymbalta] 20 mg capsule,delayed release(DR/EC) 20 mg PO BEDTIME insulin glargine [Basaglar KwikPen U-100 Insulin] 100 unit/mL (3 mL) insulin pen 40 unit subcut BID Fiasp FlexTouch U-100 Insulin 100 unit/mL (3 mL) insulin pen 5 - 17 sliding scale dose subcut QID Rx Instructions: Inject 5-17 units subcutaneous 4 times daily levothyroxine 75 mcg tablet 75 mcg PO MOTUWETHFR levothyroxine 75 mcg tablet 150 mcg PO PURCELL duloxetine 30 mg capsule,delayed release(DR/EC) 30 mg PO BID divalproex 500 mg tablet extended release 24 hr 1,000 mg PO BEDTIME gabapentin 400 mg capsule 400 mg PO TID lamotrigine 150 mg tablet 150 mg PO DAILY clonidine HCl 0.3 mg tablet 0.3 mg PO DAILY clobetasol 0.05 % cream 1 appl topical BID estradiol 0.25 mg/0.25 gram (0.1 %) gel in packet 1 packet transdermal DAILY Referrals: Samuel Chen RN [Emergency Nurse] - 2 days Print Language: Moroccan
[2024-02-16 17:24] LABS: MANUAL DIFF FLAG NO
[2024-02-16 17:28] LABS: Basophils Absolute Auto 0.1 X10*3/uL (0.0-0.2); Basophils Percent Auto 0.8 % (0-2); Eosinophils Absolute Auto 0.1 X10*3/uL (0.0-0.4); Eosinophils Percent Auto 1.4 % (0-4); Hematocrit 41.2 % (37.0-47.0); Hemoglobin 13.6 g/dl (12.0-16.0); Imm Gran Abs Auto 0.04 X10*3/uL (0.00-0.03); Imm Gran Pct Auto 0.5 % (0.0-0.4); Lymphocytes Absolute Auto 1.5 X10*3/uL (1.2-4.9); Mean Corpuscular Hemoglobin 29.7 pg (27.0-33.0); Monocytes Absolute Auto 0.4 X10*3/uL (0.1-1.2); Monocytes Percent Auto 4.7 % (2-11); Neutrophils Absolute Auto 6.7 x10*3/uL (2.0-8.3); Neutrophils Percent Auto 75.6 % (45-73); Platelet Count 171 X10*3/uL (160-400); Red Blood Count 4.58 X10*6/uL (4.20-5.50); White Blood Count 8.8 X10*3/uL (4.8-10.8)
[2024-02-16 17:40] LABS: Anion Gap 12 (12-20); Blood Urea Nitrogen 19 mg/dL (9-16); Calcium 9.5 mg/dL (8.4-10.2); Carbon Dioxide 32 mmol/L (22-29); Chloride 101 mmol/L (96-108); Creatinine Clr Calc Pharmacy 85.3; Estimated Glomerular Filt Rate > 60; Glucose Random 225 mg/dL (60-115); Potassium 4.3 mmol/L (3.3-5.1); Sodium 141 mmol/L (135-145)
[2024-02-16 17:41] LABS: Beta-Hydroxybutyrate 0.07 mmol/L (0.02-0.27)
[2024-02-16 17:54] LABS: Estimated Average Glucose 206 mg/dL; Hemoglobin A1c % 8.8 % (<6.0)
[2024-02-16 18:13] VITALS: BP 144/93; PULSE 81; RESP 20; TEMP 36.8; O2SAT 94
[2024-02-16] MEDS: Acetaminophen 325 MG TABLET 975 MG PO (19:43)
[2024-02-16] MEDS: LORazepam 0.5 MG TABLET PO (19:44)
[2024-02-16] MEDS: oxyCODONE HCl Immed Release 5 MG TABLET PO (19:44)
[2024-02-16 22:18] VITALS: BP 112/64; PULSE 73; RESP 16; TEMP 36.6; O2SAT 93
--- NOTE | 2024-02-16 22:19 | MHC.CM.ED ---
CM received consult from Yarelis CAROLINA. Met with patient. Pt is requesting assistance with housing. Was evicted today. Is now homeless. C/O knee pain. Using single crutch for supports. PT is pending. Pt has Medicare. Is disabled. Has no QS. Will place acute referrals per patient. CM explained that Medicare does not pay for STR without a qualifying stay. PCP is Dr. Briseno. Pt will stay overnight for PT. Pt given list of shelters, information for [facility], [facility] and [facility] for housing. Enc patient to call family/friends for assistance. Pt states she has no relationship with her family, no phone and no car. Enc patient to use public phones in lobby or ED waiting room when discharged. Enc patient to use [employer] for computer access. Enc patient to call [employer] with regards to her recent homelessness. Pt given food/drink. To overflow. CM will follow for discharge planning.
--- NOTE | 2024-02-16 23:22 | PC.NURSE ---
Took over care 23:22pm from BETH vinson, pt sleeping at this time.
[2024-02-17] VITALS (7 sets, daily range): BP systolic 96–154; BP diastolic 53–93; PULSE 64–76; RESP 12–21; TEMP 35.9–37; O2SAT 92–95
[2024-02-17] MEDS: oxyCODONE HCl Immed Release 5 MG TABLET PO (04:56)
[2024-02-17 05:08] LABS: Glucose, Whole Blood 301 mg/dL (60-115)
--- NOTE | 2024-02-17 05:20 | PC.NURSE ---
poc 301 Dr. Loera notified, awaiting orders
[2024-02-17] MEDS: Insulin Lispro 100 UNIT/ML 3 ML VIAL 6 UNIT SUBCUT (05:29)
--- NOTE | 2024-02-17 05:32 | PC.NURSE ---
pt covered poc with 6 units
--- NOTE | 2024-02-17 07:01 | PC.NURSE ---
Pt sleeping at this time.
[2024-02-17 08:11] LABS: Glucose, Whole Blood 173 mg/dL (60-115)
--- NOTE | 2024-02-17 11:04 | PHA.MEDREC ---
Addendum entered by Lilia Mendoza 02/17/24 11:05: Levothyroxine 0.75 mg daily but 1.5 (2 tablets) on sundays Original Note: Pharmacy Consult ? Medication Reconciliation Pharmacy has completed the medication reconciliation. Spoke to patient to confirm med list. Patient was very sleepy ,however she was able to tell me what she takes. Patient states she is no longer on Vraylar 1.5 mg at bedtim, Vitamin B-12 1,000 mg daily, Fiasp flecTouch she injects 5-17 per sliding scale Qid, Basagalr KwikPen 40 units bid
[2024-02-17 11:46] LABS: Glucose, Whole Blood 298 mg/dL (60-115)
[2024-02-17] MEDS: Insulin Lispro 100 UNIT/ML 3 ML VIAL SUBCUT ×2 (11:58→18:11)
[2024-02-17] MEDS: clonazePAM 0.5 MG TABLET PO ×2 (11:58→18:13)
[2024-02-17] MEDS: DULoxetine HCl 30 MG CAPSULE.DR PO (11:58)
[2024-02-17] MEDS: Levothyroxine Sodium 75 MCG TABLET PO (13:37)
[2024-02-17] MEDS: Acetaminophen 325 MG TABLET 650 MG PO ×2 (13:37→18:14)
[2024-02-17] MEDS: cloNIDine HCL 0.1 MG TABLET 0.3 MG PO (13:38)
[2024-02-17] MEDS: Gabapentin 400 MG CAPSULE PO (15:28)
--- NOTE | 2024-02-17 16:42 | MHC.CM.ED ---
Addendum entered by Renetta Fitzpatrick 02/17/24 19:49: Lift ride obtained to patient's father at [address] [place] [address] in [place]. Pt encouraged to take any offer help, to ask for help and to make phone calls for help. Pt tells CM she is on a housing waiting list in [place]. CM encouraged patient to call [facility] authority and let them know that you are now homeless. Pt crying. CM waited for lyft with patient. Lyft came and patient left [facility]. Addendum entered by Renetta Fitzpatrick 02/17/24 18:48: CM again met with patient. Offered to have her scripts sent to local pharmacy. Pt states she cannot pay for them, as her [facility] was cancelled and she has no money. Pt had an appointment last Wednesday with her PCP, but did not go d/t knee pain. Pt ambulates with steady gait, with minimal use of her crutch. Pt tells CM that she only took her insulin pens with her when she left her apartment. Did not take any other meds. States they were in her car, that was re-possessed. Again, patient has refused scripts. CM retrieved her insulin pens from the [facility] pharmacy-3 Fiaso flex pens and 15 Basaglar Kwik pens. Pt is aware that they are good to use for a month without refrigeration. Pt D/C to waiting room. Pt attempting to make calls. Pt is homeless. Discussed [facility] in [place]. Pt states she wants to stay in a hotel senior living, not in a senior living . CM explained that it may take time for her to get into a motel senior living and that [facility] or [facility] has staff that can help her. Pt aware that CM will arrange a Lift for her, but explained that she cannot wait too long, as rides are hard to arrange later in the night. Addendum entered by Renetta Fitzpatrick 02/17/24 17:06: Primary RN is aware of above conversations and is aware that security can be called if needed for patient to leave. Addendum entered by Renetta Fitzpatrick 02/17/24 17:02: CM asked patient if she needed any prescriptions. Pt declines. States she needs authorization and a refrigerator for her insulin. CM again offered her scripts which she declined. Pt left a message with her cousin. Pt states she is waiting for her insulin. CM alerted primary RN. Patient tells CM she will make some phone calls on the waiting room phone. CM again offered her a ride. Pt tells CM that she is not going out or the local area, She will not go to [place] or [place]. CM did explain that she might need to go where she can find a bed. Pt is again angry with CM. Addendum entered by Renetta Fitzpatrick 02/17/24 16:47: Pt assisted patient with making a phone call to her cousin on the hospital phone. Pt has a cell phone, without a set up and charger. Pt believes this phone is broken. Original Note: PT is not recommending acute PT needs. Is recommending out patient PT. CM spoke with patient. Pt is very upset, angry. States she has no where to go. CM offered to call anyone for her. Her response was that she does not have any phone numbers. Pt did not call any shelters or housing resources that she was given last night. Yells that she doesn't have a phone. CM offered to provide a ride for her wherever she plans to go. Pt refused. Is very angry. CM offered again to call her family. Pt refuses. Pt states she needs her diabetic test strips authorized. CM explained that her pharmacy can contact her provider for assistance with that. Pt is continuing to yell at CM that she will go to another hospital. CM explained that she could eat dinner and then she would have to leave, as she is discharged.
[2024-02-17 16:58] LABS: Glucose, Whole Blood 282 mg/dL (60-115)
--- NOTE | 2024-02-17 19:45 | PC.NURSE ---
Pt packed and ready to leave upon my assuming care of this patient at approx 1615. Pt resistant to leaving but accepting of circumstance after multi interventions by nursing and case management. Pt's insulin/meds returned to patient from pharmacy.. Pt assisted with belongings, given extra ice packs and medicated for pain and axiety upon discharge. Pt given some diet soda and snacks. She was encouraged to fill out forms for assistance. Pt states she has all resource lists/papers given to her by CM. Pt requested a Lyft at last moments prior to discharge and was accomodated. pt brought to lobby to await lift and charge cell phone by TONY.
== END 2024-02-17 18:45 | disposition home or self-care (01) ==
PROVIDERS: Physician Assistant; Emergency Provider Emergency Medicine
DX: S83.92XA Sprain of unspecified site of left knee, initial encounter (principal); X58.XXXA Exposure to other specified factors, initial encounter; Y93.9 Activity, unspecified; Y92.9 Unspecified place or not applicable; Y99.9 Unspecified external cause status; R26.2 Difficulty in walking, not elsewhere classified; E11.9 Type 2 diabetes mellitus without complications; M25.562 Pain in left knee; F41.9 Anxiety disorder, unspecified; Z79.899 Other long term (current) drug therapy; Z59.00 Homelessness unspecified
CPT/HCPCS: 36415; 73564; 80048; 82010; 82947; 83036; 85025; 97161; 99284

== ENCOUNTER 2024-02-21 23:16 | Emergency (ER) | payer MEDICARE, MEDICAID, SELFPAY ==
[2024-02-21 23:20] VITALS: BP 119/84; BP 136/76; PULSE 80; PULSE 90; RESP 18; TEMP 36.2; O2SAT 97; BMI 24.3
[2024-02-21 23:53] LABS: Basophils Absolute Auto 0.1 X10*3/uL (0.0-0.2); Basophils Percent Auto 0.6 % (0-2); Eosinophils Absolute Auto 0.1 X10*3/uL (0.0-0.4); Eosinophils Percent Auto 1.2 % (0-4); Hematocrit 43.3 % (37.0-47.0); Hemoglobin 14.2 g/dl (12.0-16.0); Imm Gran Abs Auto 0.02 X10*3/uL (0.00-0.03); Imm Gran Pct Auto 0.2 % (0.0-0.4); Lymphocytes Absolute Auto 1.9 X10*3/uL (1.2-4.9); Lymphocytes Percent Auto 19.9 % (20-40); MANUAL DIFF FLAG NO; Mean Corpuscular HGB Conc 32.8 g/dl (31.0-35.0); Mean Corpuscular Hemoglobin 29.8 pg (27.0-33.0); Mean Platelet Volume 11.4 fL (9.4-12.3); Monocytes Absolute Auto 0.6 X10*3/uL (0.1-1.2); Monocytes Percent Auto 6.7 % (2-11); Neutrophils Absolute Auto 6.7 x10*3/uL (2.0-8.3); Neutrophils Percent Auto 71.4 % (45-73); Platelet Count 162 X10*3/uL (160-400); Red Blood Count 4.76 X10*6/uL (4.20-5.50); Red Cell Distribution Width 14.5 % (11.0-16.0); White Blood Count 9.4 X10*3/uL (4.8-10.8)
[2024-02-22 00:06] LABS: Alanine Aminotransferase 16 U/L (0-31); Albumin Level 4.1 g/dL (3.5-5.0); Alkaline Phosphatase 104 U/L (39-117); Anion Gap 12 (12-20); Aspartate Amino Transferase 22 U/L (5-31); Bilirubin Total 0.5 mg/dL (0.0-1.0); Blood Urea Nitrogen 16 mg/dL (9-16); Carbon Dioxide 30 mmol/L (22-29); Chloride 105 mmol/L (96-108); Estimated Glomerular Filt Rate > 60; Glucose Random 163 mg/dL (60-115); Potassium 4.4 mmol/L (3.3-5.1); Sodium 143 mmol/L (135-145); Total Protein 6.9 g/dL (6.5-8.0)
[2024-02-22 02:02] VITALS: BP 130/75; PULSE 81; RESP 18; TEMP 36.6; O2SAT 97
[2024-02-22 04:06] VITALS: BP 104/60; PULSE 67; RESP 14; TEMP 36.5; O2SAT 98
--- NOTE | 2024-02-22 04:33 | ED.GENADULT ---
HPI - General Adult General Chief complaint: General Medical Stated complaint: LEFT KNEE PAIN/ WEAKNESS Time Seen by Provider: 02/22/24 04:25 Source: patient and EMS Mode of arrival: EMS Limitations: no limitations History of Present Illness ED Provider: Dr. Loera HPI narrative: Patients initial complaint was weakness with a low blood sugar. Now patient complaining of continued left knee pain for the past 3 weeks after falling on her knee. Onset (ago): week(s) Severity: mild Related Data Home Medications ?Medication ?Instructions ?Recorded ?Confirmed clobetasol 0.05 % topical cream 1 appl topical BID 02/11/24 02/17/24 clonidine HCl 0.3 mg tablet 0.3 mg PO DAILY 02/11/24 02/17/24 divalproex 500 mg tablet,extended 1,000 mg PO BEDTIME 02/11/24 02/17/24 release 24 hr estradiol 0.25 mg/0.25 gram (0.1 1 packet transdermal DAILY 02/11/24 02/17/24 %) transdermal gel packet gabapentin 400 mg capsule 400 mg PO TID 02/11/24 02/17/24 lamotrigine 150 mg tablet 150 mg PO DAILY 02/11/24 02/17/24 clonazepam 1 mg tablet 0.5 mg PO QID 02/17/24 02/17/24 duloxetine 20 mg capsule,delayed 20 mg PO BEDTIME 02/17/24 02/17/24 release (Cymbalta) duloxetine 30 mg capsule,delayed 30 mg PO BID 02/17/24 02/17/24 release insulin aspart 5 - 17 sliding scale dose subcut 02/17/24 02/17/24 (niacinamide)(U-100) 100 unit/mL(3 QID mL) subcutaneous pen (Fiasp FlexTouch U-100 Insulin) insulin glargine 100 unit/mL (3 40 unit subcut BID 02/17/24 02/17/24 mL) subcutaneous pen (Basaglar KwikPen U-100 Insulin) levothyroxine 75 mcg tablet 75 mcg PO MOTUWETHFR 02/17/24 02/17/24 levothyroxine 75 mcg tablet 150 mcg PO PURCELL 02/17/24 02/17/24 Previous Rx's ?Medication ?Instructions ?Recorded blood sugar diagnostic (FreeStyle #100 ea 02/03/24 Test strips) blood-glucose meter (FreeStyle #1 ea 02/03/24 System Kit) lancets #100 ea 02/03/24 blood sugar diagnostic (FreeStyle #50 ea 02/10/24 Test strips) naproxen 500 mg tablet (Naprosyn) 500 mg PO BID #20 tabs 02/22/24 Allergies Allergy/AdvReac Type Severity Reaction Status Date / Time heparin [HEPARIN] Allergy Unknown UNKNOWN Verified 02/21/24 23:23 nadolol [NADOLOL] Allergy Unknown SOB/ASTHMA Verified 02/21/24 23:23 ATTACK Review of Systems Review of Systems: Yes all other systems are reviewed and are negative Neurologic: Denies Sensory deficit (Neuro) [facility] Past Medical History Medical History Type 2 diabetes Social History Social History Alcohol intake: former Year quit: 2018 Patient Tobacco Use Status: Former Tobacco user Advance Directives: No Advance Directives Information Provided: Yes Do you have a plan to hurt others: No Plan Current occupational status: disabled Physical Exam ED Vital Signs: Vital Signs - 24 hr 02/21/24 23:20 02/22/24 02:02 02/22/24 04:06 Temperature 97.2 F 97.9 F 97.7 F Pulse Rate 80 81 67 Respiratory Rate 18 18 14 Blood Pressure 119/84 130/75 104/60 Pulse Oximetry 97 97 98 Oxygen Delivery Method Room Air Room Air Room Air BMI result Body Mass Index 24.3 Const Other: unkept female with alcohol on her breath Nutritional Appearance: average body habitus Orientation/consciousness: oriented to person and patient oriented x3 Limitations: no limitations HENMT Head: Yes normal to inspection Ears: external ears normal General nose exam: Normal external nose present Mouth: Normal oral and palatal mucosa present and oropharynx normal Throat: Yes posterior oropharynx normal Eyes General: appearance normal, both eyes and all related structures Neck Neck: Yes normal visual inspection Chest Chest palpation & inspection: normal inspection of the chest Resp Auscultation: clear to auscultation bilaterally Cardio Jugular venous distension: no JVD Rate: regular rate Rhythm: regular rhythm Heart sounds: S1 normal heart sound present and S2 normal heart sound present GI Inspection: Yes normal to inspection Palpation (GI): Soft to palpation, nontender and No hepatosplenomegaly present Auscultation: normal bowel sounds General: Yes no CVA tenderness Back/Spine/Pelvis Back: no CVA tenderness Skin General skin exam: no rashes or lesions noted Neuro General: oriented to person and patient oriented x3 Cranial nerves: Yes CN's II-XII intact bilaterally Motor exam (neuro): 5/5 motor strength present throughout Sensory Exam: No Sensory deficit (Neuro) Extrem Other: left knee with very small knee effusion, FROM, no laxity Psych Appearance: grossly normal Course Reevaluation(s) Reevaluation #1: patient awake and alert, although I smell alcohol she does not seem impaired. Knee with small effusion after fall will place on nsaids and dc home Time: 04:37 Medical Decision Making Differential Diagnosis Differential Diagnoses: The differential diagnosis associated with the presentation includes (knee effusion, hypoglycemia, alcohol intoxication) Admission/Observation Consideration of admission/observation: Escalation of care including admission/observation considered (upon arrival patient considered for admission) Lab Data 02/21/24 23:48 02/21/24 23:48 Labs: Lab Results 02/21/24 Range/Units 23:48 WBC 9.4 (4.8-10.8) X10*3/uL RBC 4.76 (4.20-5.50) X10*6/uL Hgb 14.2 (12.0-16.0) g/dl Hct 43.3 (37.0-47.0) % MCV 91.0 (80.0-98.0) fL MCH 29.8 (27.0-33.0) pg MCHC 32.8 (31.0-35.0) g/dl RDW 14.5 (11.0-16.0) % Plt Count 162 (160-400) X10*3/uL MPV 11.4 (9.4-12.3) fL Immature Gran % (Auto) 0.2 (0.0-0.4) % Neut % (Auto) 71.4 (45-73) % Lymph % (Auto) 19.9 L (20-40) % [place] % (Auto) 6.7 (2-11) % Eos % (Auto) 1.2 (0-4) % Baso % (Auto) 0.6 (0-2) % Lymph # (Auto) 1.9 (1.2-4.9) X10*3/uL [place] # (Auto) 0.6 (0.1-1.2) X10*3/uL Eos # (Auto) 0.1 (0.0-0.4) X10*3/uL Baso # (Auto) 0.1 (0.0-0.2) X10*3/uL Abs Immat Gran (auto) 0.02 (0.00-0.03) X10*3/uL Absolute Neuts (auto) 6.7 (2.0-8.3) x10*3/uL Absolute Nucleated RBC 0.000 (0.0-0.012) X10*3/uL Nucleated RBC % (auto) 0.0 (0.0-0.2) /100WBC Sodium 143 (135-145) mmol/L Potassium 4.4 (3.3-5.1) mmol/L Chloride 105 (96-108) mmol/L Carbon Dioxide 30 H (22-29) mmol/L Anion Gap 12 (12-20) BUN 16 (9-16) mg/dL Creatinine 0.81 (0.5-1.4) mg/dL Estim Creat Clear Calc 79.0 Estimated GFR > 60 Random Glucose 163 H (60-115) mg/dL Calcium 9.0 (8.4-10.2) mg/dL Total Bilirubin 0.5 (0.0-1.0) mg/dL AST 22 (5-31) U/L ALT 16 (0-31) U/L Alkaline Phosphatase 104 (39-117) U/L Total Protein 6.9 (6.5-8.0) g/dL Albumin 4.1 (3.5-5.0) g/dL External Record Review External record reviewed: Prior outpatient radiology (reviewed knee xray small effusion, no fracture early arthritis) Tests considered The following testing was considered but not selected: MRI of knee considered but effusion is small, knee is not lax Social Determinants Patient?s care significantly limited by Social Determinants of Health including: Inadequate housing, Low income and Alcoholism and drug addiction in family Discharge Plan Discharge Clinical Impression: Contusion of left knee, Effusion of knee Patient Disposition: Home, Self-Care Instructions: Swollen Knee Joint (ED) Prescriptions: New naproxen [Naprosyn] 500 mg tablet 500 mg PO BID Qty: 20 0RF No Action (DME) blood-glucose meter [FreeStyle System Kit] Kit See Rx Instructions .Route Qty: 1 0RF Rx Instructions: As directed (DME) FreeStyle Test Strip See Rx Instructions .Route Qty: 100 0RF Rx Instructions: As directed (DME) lancets Misc See Rx Instructions .Route Qty: 100 0RF Rx Instructions: As directed (DME) FreeStyle Test Strip See Rx Instructions .Route Qty: 50 0RF Rx Instructions: As directed clonazepam 1 mg tablet 0.5 mg PO QID duloxetine [Cymbalta] 20 mg capsule,delayed release(DR/EC) 20 mg PO BEDTIME insulin glargine [Basaglar KwikPen U-100 Insulin] 100 unit/mL (3 mL) insulin pen 40 unit subcut BID Fiasp FlexTouch U-100 Insulin 100 unit/mL (3 mL) insulin pen 5 - 17 sliding scale dose subcut QID Rx Instructions: Inject 5-17 units subcutaneous 4 times daily levothyroxine 75 mcg tablet 75 mcg PO MOTUWETHFR levothyroxine 75 mcg tablet 150 mcg PO PURCELL duloxetine 30 mg capsule,delayed release(DR/EC) 30 mg PO BID divalproex 500 mg tablet extended release 24 hr 1,000 mg PO BEDTIME gabapentin 400 mg capsule 400 mg PO TID lamotrigine 150 mg tablet 150 mg PO DAILY clonidine HCl 0.3 mg tablet 0.3 mg PO DAILY clobetasol 0.05 % cream 1 appl topical BID estradiol 0.25 mg/0.25 gram (0.1 %) gel in packet 1 packet transdermal DAILY Referrals: Physician,Unknown J [Primary Care Provider] - 5 days Print Language: Belarusian
[2024-02-22] MEDS: Ketorolac Tromethamine 60 MG/2 ML VIAL IM (04:50)
[2024-02-22 04:56] VITALS: BP 104/60; PULSE 67; RESP 14; TEMP 36.5; O2SAT 98
== END 2024-02-22 04:58 | disposition home or self-care (01) ==
PROVIDERS: Emergency Provider Emergency Medicine
DX: S80.02XA Contusion of left knee, initial encounter (principal); M25.562 Pain in left knee; W19.XXXA Unspecified fall, initial encounter; Y93.89 Activity, other specified; Y92.89 Other specified places as the place of occurrence of the external cause; Y99.8 Other external cause status; Z79.899 Other long term (current) drug therapy
CPT/HCPCS: 36415; 80053; 85025; 96372; 99284; J1885

== ENCOUNTER 2024-06-16 00:46 | Emergency (ER) | payer MEDICARE, MEDICAID, SELFPAY ==
[2024-06-16 00:56] VITALS: BP 122/83; PULSE 96; RESP 20; TEMP 36.9; O2SAT 95; BMI 25.1
--- NOTE | 2024-06-16 01:48 | ED_ITS ---
HPI - Skin/Abscess/Foreign Bdy General Chief complaint: Skin/Abscess/Foreign Body Stated complaint: parasite? Time Seen by Provider: 06/16/24 01:47 Source: patient Mode of arrival: ambulatory Limitations: no limitations History of Present Illness ED Provider: HPI narrative: Patient with multiple nonspecific complaints says that she has bugs all over the body coming from the nose and skin and some of the doctor prescribed her Ivermactin she could not get it patient refused further details Related Data Home Medications ?Medication ?Instructions ?Recorded ?Confirmed clobetasol 0.05 % topical cream 1 appl topical BID 02/11/24 02/17/24 clonidine HCl 0.3 mg tablet 0.3 mg PO DAILY 02/11/24 02/17/24 divalproex 500 mg tablet,extended 1,000 mg PO BEDTIME 02/11/24 02/17/24 release 24 hr estradiol 0.25 mg/0.25 gram (0.1 1 packet transdermal DAILY 02/11/24 02/17/24 %) transdermal gel packet gabapentin 400 mg capsule 400 mg PO TID 02/11/24 02/17/24 lamotrigine 150 mg tablet 150 mg PO DAILY 02/11/24 02/17/24 clonazepam 1 mg tablet 0.5 mg PO QID 02/17/24 02/17/24 duloxetine 20 mg capsule,delayed 20 mg PO BEDTIME 02/17/24 02/17/24 release (Cymbalta) duloxetine 30 mg capsule,delayed 30 mg PO BID 02/17/24 02/17/24 release insulin aspart 5 - 17 sliding scale dose subcut 02/17/24 02/17/24 (niacinamide)(U-100) 100 unit/mL(3 QID mL) subcutaneous pen (Fiasp FlexTouch U-100 Insulin) insulin glargine 100 unit/mL (3 40 unit subcut BID 02/17/24 02/17/24 mL) subcutaneous pen (Basaglar KwikPen U-100 Insulin) levothyroxine 75 mcg tablet 75 mcg PO MOTUWETHFR 02/17/24 02/17/24 levothyroxine 75 mcg tablet 150 mcg PO PURCELL 02/17/24 02/17/24 Previous Rx's ?Medication ?Instructions ?Recorded blood sugar diagnostic (FreeStyle #100 ea 02/03/24 Test strips) blood-glucose meter (FreeStyle #1 ea 02/03/24 System Kit) lancets #100 ea 02/03/24 blood sugar diagnostic (FreeStyle #50 ea 02/10/24 Test strips) naproxen 500 mg tablet (Naprosyn) 500 mg PO BID #20 tabs 02/22/24 Allergies Allergy/AdvReac Type Severity Reaction Status Date / Time heparin [HEPARIN] Allergy Unknown UNKNOWN Verified 06/16/24 00:59 nadolol [NADOLOL] Allergy Unknown SOB/ASTHMA Verified 06/16/24 00:59 ATTACK Review of Systems Review of Systems: Yes all other systems are reviewed and are negative [facility] Past Medical History Medical History Type 2 diabetes Social History Social History Alcohol intake: never Patient Tobacco Use Status: Former Tobacco user Advance Directives: No Advance Directives Information Provided: Yes Current occupational status: disabled Physical Exam Vital Signs: Vital Signs: Last Vital Signs Temp 98.4 F 06/16/24 00:56 Pulse 96 06/16/24 00:56 Resp 20 06/16/24 00:56 BP 122/83 06/16/24 00:56 Pulse Ox 95 06/16/24 00:56 O2 Del Method Room Air 06/16/24 00:56 BMI result Body Mass Index 25.1 Appearance: Alert. Oriented X3. No acute distress. Eyes: PERRLA, No Nystagmus ENT: Pharynx normal. Oral Mucosa moist Neck: Normal inspection. Neck supple. CVS: Normal heart rate and rhythm. Pulses normal. Respiratory: No respiratory distress. Equal air entry bilateral, no wheezing/rales/rhonchi Abdomen: Soft and nontender. Bowel sounds are present, no mass palpable, no CVA tenderness Skin: Skin warm and dry. Normal skin color. Normal skin turgor. No parasites seen on the skin saw some scabs after she scratched Extremities: No lower extremity edema. No calf tenderness Neuro: Oriented X 3. No motor deficit. No sensory deficit.No cerebellar signs , cranial nerves II-XII intact Medical Decision Making Medical Decision Making MDM Narrative: No parasites were seen on the skin patient was very rude and saying that she been to different hospital at least for up the and no one has helped her asking another seen here Than me to check her out when I told her that she needs to see nfectious disease doctor she got upset and walked out of the ER Discharge Plan Discharge Clinical Impression: Rash, skin Patient Disposition: Home, Self-Care Instructions: Acute Rash (ED) Additional Instructions: I do not see any insect bite/parasites on your body Follow with your PCP as advised Prescriptions: No Action (DME) blood-glucose meter [FreeStyle System Kit] Kit See Rx Instructions .Route Qty: 1 0RF Rx Instructions: As directed (DME) FreeStyle Test Strip See Rx Instructions .Route Qty: 100 0RF Rx Instructions: As directed (DME) lancets Misc See Rx Instructions .Route Qty: 100 0RF Rx Instructions: As directed (DME) FreeStyle Test Strip See Rx Instructions .Route Qty: 50 0RF Rx Instructions: As directed clonazepam 1 mg tablet 0.5 mg PO QID duloxetine [Cymbalta] 20 mg capsule,delayed release(DR/EC) 20 mg PO BEDTIME insulin glargine [Basaglar KwikPen U-100 Insulin] 100 unit/mL (3 mL) insulin pen 40 unit subcut BID Fiasp FlexTouch U-100 Insulin 100 unit/mL (3 mL) insulin pen 5 - 17 sliding scale dose subcut QID Rx Instructions: Inject 5-17 units subcutaneous 4 times daily levothyroxine 75 mcg tablet 75 mcg PO MOTUWETHFR levothyroxine 75 mcg tablet 150 mcg PO PURCELL duloxetine 30 mg capsule,delayed release(DR/EC) 30 mg PO BID naproxen [Naprosyn] 500 mg tablet 500 mg PO BID Qty: 20 0RF divalproex 500 mg tablet extended release 24 hr 1,000 mg PO BEDTIME gabapentin 400 mg capsule 400 mg PO TID lamotrigine 150 mg tablet 150 mg PO DAILY clonidine HCl 0.3 mg tablet 0.3 mg PO DAILY clobetasol 0.05 % cream 1 appl topical BID estradiol 0.25 mg/0.25 gram (0.1 %) gel in packet 1 packet transdermal DAILY Print Language: Honduran
[2024-06-16 02:09] VITALS: BP 122/83; PULSE 96; RESP 20; TEMP 36.9; O2SAT 95
== END 2024-06-16 02:13 | disposition home or self-care (01) ==
PROVIDERS: Emergency Provider Internal Medicine
DX: R21 Rash and other nonspecific skin eruption (principal); E11.9 Type 2 diabetes mellitus without complications; Z79.899 Other long term (current) drug therapy; Z79.4 Long term (current) use of insulin
CPT/HCPCS: 99284